=== PATIENT | female | born 1930 | race Hispanic/Latino ===

== ENCOUNTER 2017-02-25 15:37 | Inpatient (IN) | payer MEDICARE ==
--- NOTE | 2017-02-25 15:52 | ED PDOC ---
Arrival/HPI - General Time Seen by Provider: 02/25/17 15:42 Historian: Patient - History of Present Illness Narrative History of Present Illness (Text): 02/25/17 15:46 86 y/o female, pmh including chronic anemia due to chronic kidney disease/htn/ hyperlipidemia/inferior wall CT/renal insufficiency/aortic stenosis/CHF, nkda, here with the daughter, c/o shortness of breath and leg swelling x 3 days. Pt. has chronic congestive heart failure which she has been having worsening of the leg swelling with left greater than that right, associated with shortness of breath upon exertion from walking bed room in kitchen with her cane, mild coughing, more worsened for the past 2-3 days which eventually causing her difficulty to move around in the house, no abdominal pain, no stool discoloration, no fever or chills, no night sweat, no dizziness, no rash, no numbness or tingling, no palpitation, no other medical or psychological complaints. Past Medical History - Provider Review Nursing Documentation Reviewed: Yes - Infectious Disease Hx of Infectious Diseases: None - Cardiac Hx Cardiac Disorders: Yes Hx Hypertension: Yes - Pulmonary Hx Respiratory Disorders: No - Neurological Hx Neurological Disorder: No - HEENT Hx HEENT Disorder: No - Renal Hx Renal Disorder: No - Endocrine/Metabolic Hx Endocrine Disorders: No - Hematological/Oncological Hx Blood Disorders: No - Integumentary Hx Dermatological Disorder: No - Musculoskeletal/Rheumatological Hx Musculoskeletal Disorders: No Hx Falls: No - Gastrointestinal Hx Gastrointestinal Disorders: No - Genitourinary/Gynecological Hx Genitourinary Disorders: No - Psychiatric Hx Psychophysiologic Disorder: Yes Hx Anxiety: Yes Hx Substance Use: No - Surgical History Hx Coronary Stent: Yes (x6/1st in 2011/last 2014) - Anesthesia Hx Anesthesia: Yes Hx Anesthesia Reactions: No Hx Malignant Hyperthermia: No Family/Social History - Physician Review Nursing Documentation Reviewed: Yes Family/Social History: Unknown Family HX Smoking Status: Never Smoked Hx Alcohol Use: No Hx Substance Use: No Allergies/Home Meds Allergies/Adverse Reactions: Allergies No Known Allergies Allergy (Verified 07/02/15 14:44) Home Medications: Home Meds Medication Instructions Recorded Confirmed Aspirin 325 mg PO DAILY 06/17/15 02/25/17 Atorvastatin [Lipitor] 10 mg PO DAILY 06/17/15 02/25/17 Carvedilol [Coreg] 12.5 mg PO BID 06/17/15 02/25/17 Furosemide [Lasix] 40 mg PO BID 06/17/15 02/25/17 Isosorbide Mononitrate ER [Imdur 30 mg PO DAILY 07/02/15 02/25/17 ER] Alprazolam [Xanax] 0.25 mg PO DAILY 02/25/17 02/25/17 hydrALAZINE [Apresoline] 25 mg PO TID 02/25/17 02/25/17 Review of Systems - Review of Systems Constitutional: Fatigue. absent: Fevers Eyes: absent: Vision Changes ENT: absent: Hearing Changes Respiratory: SOB. absent: Cough Cardiovascular: Edema. absent: Chest Pain Gastrointestinal: absent: Abdominal Pain, Nausea, Vomiting Genitourinary Female: absent: Dysuria Musculoskeletal: absent: Arthralgias, Back Pain Skin: absent: Rash, Pruritis, Skin Lesions Neurological: absent: Headache, Dizziness Psychiatric: absent: Anxiety, Depression Physical Exam Vital Signs Reviewed: Yes Vital Signs Temp Pulse Resp BP Pulse Ox 02/25/17 17:48 128/85 02/25/17 16:42 87 18 115/64 98 02/25/17 16:06 98.0 F 02/25/17 15:38 99.7 F H 96 H 19 110/62 100 Temperature: Afebrile Blood Pressure: Normal Pulse: Regular Respiratory Rate: Normal Appearance: Positive for: Well-Appearing, Non-Toxic Pain Distress: None Mental Status: Positive for: Alert and Oriented X 3 - Systems Exam Head: Present: Atraumatic, Normocephalic Pupils: Present: PERRL Extroacular Muscles: Present: EOMI Conjunctiva: Present: Normal Mouth: Present: Moist Mucous Membranes Nose (External): Present: Atraumatic. No: Abrasion, Lesions Neck: Present: Normal Range of Motion, Trachea Midline. No: MIDLINE TENDERNESS Respiratory/Chest: Present: Clear to Auscultation, Good Air Exchange. No: Respiratory Distress, Accessory Muscle Use, Wheezes, Decreased Breath Sounds, Rales, Retracting, Rhonchi, Tachypneic, Tender to Palpation Cardiovascular: Present: Regular Rate and Rhythm, Normal S1, S2, Other (3+ pedal edema bilaterally with no cellulitis or streaking, no ulcers. ). No: Murmurs Abdomen: Present: Normal Bowel Sounds. 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 Guaiac negative). No: Occult Blood, Rectal Tenderness, Gross Blood, Melena, Fissures, Nodule/Mass/Lesions Back: Present: Normal Inspection Upper Extremity: Present: Normal Inspection. No: Cyanosis, Edema Lower Extremity: Present: Normal Inspection. No: Edema Neurological: Present: GCS=15, Speech Normal, Motor Func Grossly Intact, Memory Normal Skin: Present: Warm, Dry, Normal Color. No: Rashes Psychiatric: Present: Alert, Oriented x 3, Normal Insight, Normal Concentration Medical Decision Making ED Course and Treatment: 02/25/17 15:58 -labs/ua -ekg -cxr -nasal cannula oxygen/aspirin 325mg po -athletic monitor -Observe and reassess 02/25/17 17:24 -Guaiac negative -EKG: NSR @ 89 BPM, non-specific ST changes noted on the I and aVL, no obvious ST elevation or depression, no T wave inversion, compared with previous ekg. -Chest xray: mild central pulmonary vascular congestion with small bilateral effusions. Rule out CHF or fluid overload -Bilateral lower extremity venous Doppler: as per preliminary report, no acute DVT -Labs show no acute findings except Hgb 8.1 (Guaiac negative, CKD and anemia) from 10.6, Bun 35 from 79, Creatine 1.4 from 1.9 -BNP show 04735 from 6740 (stated that she feels well when she remains still and not moving, she's not in respiratory distress at this time) -Cardiac troponin is 0.03 (which is above the normal range as it needs to be trend). -She will need tele admission with after school program director evaluation as her CHF is worsening with unable to walk across the room. -Her shortness of breath is likely contributing from the worsening CHF and anemia. She will be admitted for the CHF and symptomatic anemia. -Dr. Quinones [email or web address]. 02/25/17 17:39 -I spoke to Dr. Quinones which she reviewed all the labs/radiology studies, agreed to admit the patient but request lasix and blood transfusion since she is symptomatic anemia. Dr. Quinones will put in her own consults. -Due to the patient's condition, will start with 1 unit of blood and 20mg of lasix as her blood pressure is not relatively high. -Discussed with Dr. Pitts and he agreed on the admission. - Lab Interpretations Lab Results: 02/25/17 16:30 02/25/17 16:30 Lab Results 02/25/17 17:43: Blood Type A NEGATIVE, Antibody Screen Negative, Crossmatch See Detail, BBK History Checked No verified bt 02/25/17 16:30: Sodium 140, Potassium 4.0, Chloride 99, Carbon Dioxide 31, Anion Gap 14, BUN 35 H, Creatinine 1.4 H, Est GFR ( Amer) 43, Est GFR ( Non-Af Amer) 36, Random Glucose 102, Calcium 9.0, Magnesium 1.9, Total Bilirubin 0.6, AST 31, ALT 29, Alkaline Phosphatase 75, Lactate Dehydrogenase 714 H, Total Creatine Kinase 54, Troponin I 0.03 D, NT-Pro-B Natriuret Pep 92963 H, Total Protein 7.2, Albumin 3.8, Globulin 3.4, Albumin/Globulin Ratio 1.1 02/25/17 16:30: WBC 5.0, RBC 3.76, Hgb 8.1 L, Hct 28.7 L, MCV 76.3 L, MCH 21.5 L , MCHC 28.2 L, RDW 19.2 H, Plt Count 233, MPV 9.7, Gran % 65.5, Lymph % (Auto) 21.7 L, [place] % (Auto) 10.4 H, Eos % (Auto) 2.0, Baso % (Auto) 0.4, Gran # 3.29, Lymph # 1.1 L, [place] # 0.5, Eos # 0.1, Baso # 0.02 - RAD Interpretation Radiology Orders: 02/25/17 15:53 CHEST PORTABLE [RAD] Stat 02/25/17 15:55 DUPLEX LOWER EXTRM VEIN BILAT [US] Stat Chest xray: HISTORY: shortness of breath COMPARISON: Comparison chest 06/20/2015 FINDINGS: LUNGS: Current study reveals what is felt to represent mild central pulmonary vascular congestion with small bilateral effusions. . Rule out CHF or fluid overload. PLEURA: No significant pleural effusion identified, no pneumothorax apparent. CARDIOVASCULAR: . Heart appears enlarged. OSSEOUS STRUCTURES: No significant abnormalities. VISUALIZED UPPER ABDOMEN: Normal. OTHER FINDINGS: None. IMPRESSION: Current study reveals what is felt to represent mild central pulmonary vascular congestion with small bilateral effusions. . Rule out CHF or fluid overload. Bilateral lower extremity venuous doppler: as per preliminary report, no acute DVT Sheep Sorter: Radiologist - EKG Interpretation EKG Interpretation (Text): 02/25/17 16:01 -EKG: NSR @ 89 BPM, non-specific ST changes noted on the I and aVL, no obvious ST elevation or depression, no T wave inversion, compared with previous ekg. Interpreted by ED Physician: Yes Type: 12 lead EKG Comparison: Com.w/previous EKG - Medication Orders Current Medication Orders: Alprazolam (Xanax) 0.25 mg PO HS PRN; Protocol PRN Reason: Anxiety Stop: 03/04/17 22:01 Aspirin (Aspirin Chewable) 81 mg PO DAILY [facility] Last Admin: 02/26/17 09:06 Dose: 81 mg Atorvastatin Calcium (Lipitor) 10 mg PO DIN [facility] Last Admin: 02/26/17 17:31 Dose: 10 mg Carvedilol (Coreg) 12.5 mg PO BID [facility] Last Admin: 02/26/17 17:30 Dose: 12.5 mg MAR Pulse and Blood Pressure Document 02/26/17 17:30 (Rec: 02/26/17 17:30 [id number] Pulse Pulse Rate (60-90) 76 Blood Pressure Blood Pressure (100/60-150/90) 126/68 Furosemide (Lasix) 40 mg IVP BID [facility] Last Admin: 02/26/17 17:18 Dose: 40 mg MAR Blood Pressure Document 02/26/17 17:18 MF (Rec: 02/26/17 17:29 [id number][facility] Blood Pressure Blood Pressure (100/60-150/90) 177/98 IVP Administration Document 02/26/17 17:18 MF (Rec: 02/26/17 17:29 [id number]) Charges for Administration # of IVP Administrations 1 Hydralazine HCl (Apresoline) 25 mg PO TID [facility] Last Admin: 02/26/17 17:29 Dose: 25 mg MAR Pulse and Blood Pressure Document 02/26/17 17:29 MF (Rec: 02/26/17 17:30 [id number]) Pulse Pulse Rate (60-90) 76 Blood Pressure Blood Pressure (100/60-150/90) 126/68 Isosorbide Mononitrate (Imdur Er) 30 mg PO DAILY [facility] Last Admin: 02/26/17 09:06 Dose: 30 mg Discontinued Medications Aspirin (Ecotrin) 325 mg PO STAT STA Stop: 02/25/17 15:54 Last Admin: 02/25/17 16:08 Dose: 325 mg Furosemide (Lasix) 20 mg IVP STAT STA Stop: 02/25/17 17:35 Last Admin: 02/25/17 17:48 Dose: 20 mg MAR Blood Pressure Document 02/25/17 17:48 [place] (Rec: 02/25/17 17:51 [id number]) Blood Pressure Blood Pressure (100/60-150/90) 128/85 IVP Administration Document 02/25/17 17:48 LA (Rec: 02/25/17 17:51 [id number]) Charges for Administration # of IVP Administrations 1 Furosemide (Lasix) 40 mg IVP Q12 ALIVIA Furosemide (Lasix) 20 mg IVP ONCE ONE Stop: 02/25/17 19:53 Last Admin: 02/25/17 20:17 Dose: 20 mg MAR Blood Pressure Document 02/25/17 20:17 AP (Rec: 02/25/17 20:18 AP [id number]) Blood Pressure Blood Pressure (100/60-150/90) 132/75 IVP Administration Document 02/25/17 20:17 AP (Rec: 02/25/17 20:18 AP [id number]) Charges for Administration # of IVP Administrations 1 - PA / PLANER FEEDER / Resident Statement MD/DO has reviewed & agrees with the documentation as recorded. Disposition/Present on Arrival - Present on Arrival Any Indicators Present on Arrival: No History of DVT/PE: No History of Uncontrolled Diabetes: No Urinary Catheter: No History of Decub. Ulcer: No History Surgical Site Infection Following: None - Disposition Have Diagnosis and Disposition been Completed?: Yes Diagnosis: Congestive heart failure (CHF), Dehydration, Symptomatic anemia Disposition: HOSPITALIZED Disposition Time: 17:27 Patient Plan: Admission, Telemetry Patient Problems: Current Active Problems Problem Status Onset Congestive heart failure (CHF) Acute Dehydration Acute Symptomatic anemia Acute Condition: GUARDED
[2017-02-25] MEDS ORDERED: Aspirin 325 mg EC Tablets PO STA (15:53)
--- NOTE | 2017-02-25 16:33 | RAD ---
HISTORY: shortness of breath COMPARISON: Comparison chest 06/20/2015 FINDINGS: LUNGS: Current study reveals what is felt to represent mild central pulmonary vascular congestion with small bilateral effusions. . Rule out CHF or fluid overload. PLEURA: No significant pleural effusion identified, no pneumothorax apparent. CARDIOVASCULAR: . Heart appears enlarged. OSSEOUS STRUCTURES: No significant abnormalities. VISUALIZED UPPER ABDOMEN: Normal. OTHER FINDINGS: None. IMPRESSION: Current study reveals what is felt to represent mild central pulmonary vascular congestion with small bilateral effusions. . Rule out CHF or fluid overload.
[2017-02-25 16:53] LABS: BASO # 0.02 K/mm3 (0.0-2.0); BASO % 0.4 % (0.0-3.0); EOS # 0.1 (0.0-0.7); GRAN # 3.29 (1.4-6.5); GRAN % 65.5 % (50.0-68.0); HEMATOCRIT 28.7 % (36.0-48.0); LYMPH # 1.1 (1.2-3.4); LYMPH % 21.7 % (22.0-35.0); MEAN CELL VOLUME 76.3 fl (80.0-105.0); MEAN CORPUSCULAR HEMOGLOBIN 21.5 pg (25.0-35.0); MEAN CORPUSCULAR HGB CONC 28.2 g/dl (31.0-37.0); MEAN PLATELET VOLUME 9.7 fl (7.0-11.0); MONO # 0.5 (0.1-0.6); MONO % 10.4 % (1.0-6.0); RED CELL DISTRIBUTION WIDTH 19.2 % (11.5-14.5)
[2017-02-25 17:04] LABS: ALB/GLOB RATIO 1.1 (1.1-1.8); BILIRUBIN,TOTAL 0.6 mg/dL (0.2-1.3); MAGNESIUM 1.9 mg/dL (1.7-2.2); TOTAL PROTEIN 7.2 g/dL (5.8-8.3)
[2017-02-25 17:14] LABS: TROPONIN I 0.03 ng/mL
[2017-02-25 20:20] VITALS: BMI 30.2
[2017-02-25 20:37] LABS: URINE BILIRUBIN NEGATIVE (NEGATIVE); URINE BLOOD NEGATIVE (NEGATIVE); URINE GLUCOSE (UA) NEGATIVE (NEGATIVE); URINE KETONE NEGATIVE (NEGATIVE); URINE LEUKOCYTE ESTERASE SMALL Leu/uL (NEGATIVE); URINE PROTEIN NEGATIVE mg/dL (<30 mg/dL); URINE UROBILINOGEN 0.2 E.U./dL (<1 E.U./dL)
[2017-02-25 20:40] LABS: URINE APPEARANCE CLEAR (CLEAR); URINE COLOR YELLOW (YELLOW)
[2017-02-25 20:52] LABS: URINE EPITHELIAL CELLS 0 - 2 /hpf (0-5); URINE RBC NEGATIVE /hpf (0-2)
[2017-02-25 20:53] LABS: URINE BACTERIA NEG (NEG)
[2017-02-26 05:59] LABS: BASO # 0.03 K/mm3 (0.0-2.0); BASO % 0.5 % (0.0-3.0); EOS # 0.2 (0.0-0.7); EOS % 2.6 % (1.5-5.0); GRAN # 4.01 (1.4-6.5); GRAN % 62.1 % (50.0-68.0); LYMPH # 1.3 (1.2-3.4); LYMPH % 20.2 % (22.0-35.0); MEAN CELL VOLUME 79.1 fl (80.0-105.0); MEAN CORPUSCULAR HEMOGLOBIN 23.3 pg (25.0-35.0); MEAN CORPUSCULAR HGB CONC 29.4 g/dl (31.0-37.0); MONO # 0.9 (0.1-0.6); MONO % 14.6 % (1.0-6.0); RED CELL DISTRIBUTION WIDTH 18.7 % (11.5-14.5); WHITE BLOOD COUNT 6.5 10^3/ul (4.5-11.0)
[2017-02-26 09:56] LABS: IRON 152 ug/dL (45-180)
[2017-02-26 12:29] LABS: FOLATE 5.4 ng/mL
--- NOTE | 2017-02-26 13:08 | US ---
HISTORY: Leg pain and swelling. Evaluate for DVT PHYSICIAN(S): Denilson Perez MD. TECHNIQUE: Duplex sonography and color-flow Doppler with graded compression were used to evaluate the deep venous systems of both lower extremities. FINDINGS: The visualized deep venous systems of both lower extremities are sonographically normal and compressible. Normal wave forms and augmentation are seen. There is no sonographic evidence for deep venous thrombosis in the visualized segments of both lower extremities. IMPRESSION: No sonographic evidence for deep venous thrombosis in the visualized segments of both lower extremities.
--- NOTE | 2017-02-26 14:04 | CARD ---
APPROVED REPORT EKG Measurement Heart [id number] MD [id number] <Conclusion> Normal sinus rhythm Left ventricular hypertrophy with repolarization abnormality Inferior infarct, age undetermined Abnormal ECG
--- NOTE | 2017-02-26 22:26 | HP ---
HISTORY OF PRESENT ILLNESS: This 86-year-old female was examined at her bedside, and her case was reviewed in detail with herself and her registered nurse, Mi Carty. The patient presented to the [facility] ER with the help of her family last evening. She was complaining of shortness of breath for the past 3 days associated with bilateral leg swelling. The patient's past medical history is extensive and includes chronic systolic congestive heart failure. She also has a history of [id number] aortic stenosis, severe mitral regurgitation and history of right heart failure, as well as dilated left atrium. This is all from her 2-D echocardiogram dated 06/2015. She follows with Dr. Jane, her resilient tile installer, and has been seen by Dr. Oziel Treadwell from the [facility] on previous admissions. The patient because of her shortness of breath and pedal edema was having difficulty ambulating around her home and when she presented to the ER, was noted to be with advanced anemia and clinical congestive heart failure. She has been admitted for diuresis and blood cell transfusion. The patient has a history of coronary artery stents x6, the last placed in 2014. MEDICATIONS: She, as an outpatient, takes Ecotrin, Lipitor, Coreg, Lasix, Imdur, Xanax p.r.n. anxiety, and hydralazine. 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 FAMILY HISTORY: Not available. ALLERGIES: SHE DENIES ANY ALLERGIES TO MEDICATIONS. REVIEW OF SYSTEMS: CONSTITUTIONAL: She denied fever or chills. HEENT: Head: No knowledge of old stroke. Eyes: No change in visual acuity. Ears: No hearing loss. Throat: No swallowing difficulty. NECK: No stiffness. CARDIOVASCULAR: History of atherosclerotic heart disease, cardiomyopathy, aortic stenosis, mitral regurgitation, right heart failure, acute on chronic systolic congestive heart failure, chronic hypertension PULMONARY: Pulmonary hypertension. GI: Denied hematemesis, melena. 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 ENDOCRINOLOGICAL: Hyperlipidemia and anemia of chronic disease. VASCULAR: No claudication. PSYCHOLOGICAL: Anxiety. NEUROLOGICAL: No knowledge of stroke. PHYSICAL EXAMINATION: GENERAL: At present, the patient is in atrial fibrillation on the panel monitor. VITAL SIGNS: Temperature 97.8, respirations 19, pulse 72, blood pressure 140/75, pulse oximetry 94% room air. HEENT: Head: Normocephalic, atraumatic. Eyes: No icterus. Ears: Clear. Throat: Noninjected. NECK: Supple. HEART: Irregular S1, S2. LUNGS: With basilar rales. ABDOMEN: Soft. EXTREMITIES: 2+ pitting edema. SKIN: Without rash. VASCULAR: Legs warm to touch. PSYCHOLOGICAL: Alert and anxious. NEURO: Grossly intact. LABORATORY DATA: Admission CBC, white count 5000, hemoglobin 8.1, hematocrit 28.7, platelets 233,000. Post transfusion, white count 6500, hemoglobin 10.6, hematocrit 36.0, platelets 208,000. PT/INR 1.01, PTT 31.0. Sodium 140, K 4.0, chloride 99, bicarb 31, BUN 35, creatinine 1.4. Estimated GFR 36 mL/minute. Magnesium level normal 1.9. Iron level 152, TIBC 495, percent saturation 31% consistent with anemia of chronic disease. All liver function testing was normal including bilirubin 0.6, AST 31, ALT 29 and alkaline phosphatase 75. BNP elevated 18,900. CPK normal at 54. Troponin 0.03. Urinalysis showed no bacteria. Chest x-ray was reviewed, it shows pulmonary vascular congestion. EKG reportedly showed normal sinus rhythm with nonspecific ST-T wave changes. 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 PLAN: At present is to maintain the patient on the cardiac sierra. She will continue on hydralazine 25 mg p.o. t.i.d.; Imdur 30 mg p.o. daily; Lasix 40 mg IV b.i.d.; Lipitor 10 mg p.o. at dinner time; Ecotrin 81 mg p.o. daily; Coreg 12.5 mg p.o. b.i.d.; Xanax 0.25 mg p.o. at bedtime p.r.n. anxiety. I will obtain a consultation with Dr. Oziel Treadwell from Cardiology given the multiple cardiac issues at hand including hypertension, atherosclerotic heart disease with stents, acute on chronic systolic congestive heart failure, right heart failure, history of severe aortic stenosis, severe mitral regurgitation, pulmonary hypertension, right heart failure, and now paroxysmal atrial fibrillation. Given the patient's advanced age, anemia, and multiple comorbidities, I do not feel she is a good candidate for anticoagulation, but we will discuss this further with Cardiology. At present, her blood pressure and pulse rate are controlled and we will continue with her beta-brittanie as well as hydralazine and IV Lasix. As discussed with the patient and her family in the past, she will need to discuss the timing of a gastrointestinal workup with her PMD if this has not yet been completed when she is clinically stable given her anemia. The patient will be maintained on the cardiac unit. She will have a repeat basic metabolic panel and hemoglobin/hematocrit in the a.m. Stool guaiac in the emergency room by the emergency room physician was reportedly negative for occult blood, and she continues on a heart-healthy diet, soft, bland with fluid restriction. Physical therapy has also been ordered for ambulation safety. Overall prognosis remains poor. Greater than seventyfive minutes was spent in the care, counseling, coordination , discussion and review of x-rays, labs, old echocardiography and old medical records for this patient today. This case was reviewed in detail with herself, nursing, Cardiology, emergency room physicians, and all questions were answered. Cally Quinones MD MTDD
[2017-02-27 06:28] VITALS: O2SAT 96
[2017-02-27 06:49] LABS: HEMATOCRIT 35.1 % (36.0-48.0)
[2017-02-27 07:30] LABS: CALCIUM 9.2 mg/dL (8.4-10.5); POTASSIUM 3.7 mmol/L (3.6-5.0)
--- NOTE | 2017-02-27 19:59 | CON ---
DATE: 02/27/2017 INDICATION: Shortness of breath and CHF. HISTORY OF PRESENT ILLNESS: This is an 86-year-old woman known to me from an admission about a year and half ago, who came in because of several days increasing shortness of breath, inability to perform ordinary activities because of fatigue and increasing pedal edema. She was admitted through the Emergency Room where she was found to be anemic and with evidence of congestive heart failure. She received a blood transfusion, IV Lasix. This morning she feels better, lying in bed on telemetry without shortness of breath, but still with mild to moderate lower extremity edema. There was no chest pain, orthopnea, PND, syncope, presyncope, lightheadedness, dizziness, fever, chills, sputum production, hemoptysis, abdominal pain, nausea, vomiting, diarrhea, constipation, or melena. PAST MEDICAL HISTORY: Her past medical history is complex, she suffered an inferior wall myocardial infarction in 06/2015, was hospitalized to [facility] that was my first encounter with her. I have not seen her since. She follows with her regular Assistant Statistician Dr. Jane. She has a history of remote coronary bypass surgery, remote myocardial infarction, and remote coronary stents. An echocardiogram during last admission demonstrated moderately severe LV dysfunction, moderate to severe aortic stenosis, mitral regurgitation, and pulmonary hypertension with mild to moderate tricuspid regurgitation. She has a history of hypertension, hyperlipidemia, anemia, and chronic kidney disease. There is no history of stroke, TIA, diabetes, or gout. MEDICATIONS: Medications at the time of admission include aspirin, Lipitor, Coreg, Lasix, Imdur, Xanax, and hydralazine. ALLERGIES: THERE ARE NO KNOWN MEDICATION ALLERGIES. FAMILY HISTORY: Noncontributory. SOCIAL HISTORY: She lives at home with her family. She is ambulatory within the house. She does not smoke. She does not drink alcohol. REVIEW OF SYSTEMS: A 10-point review of systems limited due to language, but otherwise unremarkable. PHYSICAL EXAMINATION GENERAL: She is a well-developed elderly woman lying in bed on telemetry in no acute distress. VITAL SIGNS: She is in sinus rhythm at 83 beats per minute. She is afebrile. Blood pressure 115/61, respirations 19, and O2 saturation 94 to 96% on nasal cannula. HEENT: Reveals neck in distention, but no thyromegaly or carotid bruits. Mucous membrane is moist. Conjunctiva pale. NECK: Supple. LUNGS: Lung caicedo scattered rales at the bases. HEART: Revealed normal first and second heart sounds. There is a 2/6 systolic ejection murmur in aortic space along the left sternal border and at the apex. There is a systolic murmur, which is more holosystolic. The PMI is displaced laterally. ABDOMEN: Soft. Bowel sounds present. No mass, organomegaly, tenderness, rebound, guarding, CVA tenderness or palpable abdominal aortic aneurysm. EXTREMITIES: Revealed mild to moderate edema to the shins. NEUROLOGIC: Awake, alert, and oriented. SKIN: Warm and dry. No rash or cellulitis. PSYCHIATRIC: Normal as to mood and affect. LABORATORY DATA AND IMAGING: EKG demonstrated regular sinus rhythm, poor R-wave progression, inferior wall myocardial infarction, ST-T wave changes consistent with ischemia, LVH, intraventricular conduction delay, ischemic changes are more obvious as compared with a prior EKG. Chest x-ray reveals vascular congestion, small bilateral pleural effusions rule out CHF or volume overload. Extremity ultrasound reveals no evidence of DVT. White count normal. Hemoglobin initially 8.1 repeat this morning 10.0, hematocrit 28.7, repeat this morning 35.1, platelet count was normal. Electrolytes unremarkable. BUN 35 and creatinine 1.4, repeat 1.3. Calcium and magnesium levels normal. Iron study is noted. Liver function tests are unremarkable. CK 54, troponin 0.03. BNP 32567. B12 and folate levels normal. Urinalysis unremarkable. IMPRESSION: Di Styles is an 86-year-old woman with coronary artery disease, remote coronary bypass surgery, remote coronary interventions, inferior wall myocardial infarction in 06/2015, with moderately severe left ventricular dysfunction and valvular pathology as described in the 06/2015 echo report, a history of hypertension, hyperlipidemia, and anemia worse recently with a history of chronic kidney disease, who was admitted with anemia, congestive heart failure, and symptoms consisting of shortness of breath, inability to perform ordinary activities and edema. PLAN: At this point, she is on telemetry, she has been given a unit of blood, she is getting IV Lasix, her urine output is not accurately reported, but the nurses told me that there was good urine output during the night. Her breathing has improved. She still has edema. I will review old records. I will discuss this case with Dr. Quinones, who will monitor I's and O's, check stool for occult blood, monitor daily labs. I will repeat her echocardiogram to update her valve pathology and LV function. She is getting hydralazine, aspirin, Coreg, Imdur, IV Lasix, Lipitor, and Xanax at bedtime p.r.n. I have ordered an echocardiogram. I will repeat her EKG this morning and repeat the troponin level this morning. I will follow along with you. I will make additional recommendations based on the clinical course. Given her advanced age, a conservative course of cardiac care is anticipated. Oziel Treadwell MD MTDD
[2017-02-28 06:29] LABS: BASO # 0.03 K/mm3 (0.0-2.0); BASO % 0.4 % (0.0-3.0); EOS # 0.4 (0.0-0.7); EOS % 5.1 % (1.5-5.0); GRAN # 4.83 (1.4-6.5); HEMATOCRIT 35.3 % (36.0-48.0); LYMPH # 1.1 (1.2-3.4); LYMPH % 15.2 % (22.0-35.0); MEAN CELL VOLUME 80.2 fl (80.0-105.0); MEAN CORPUSCULAR HEMOGLOBIN 22.7 pg (25.0-35.0); MEAN CORPUSCULAR HGB CONC 28.3 g/dl (31.0-37.0); MEAN PLATELET VOLUME 9.4 fl (7.0-11.0); MONO # 0.8 (0.1-0.6); MONO % 11.3 % (1.0-6.0); RED CELL DISTRIBUTION WIDTH 19.7 % (11.5-14.5); WHITE BLOOD COUNT 7.1 10^3/ul (4.5-11.0)
[2017-02-28 06:57] LABS: CALCIUM 9.3 mg/dL (8.4-10.5); POTASSIUM 3.5 mmol/L (3.6-5.0)
--- NOTE | 2017-02-28 07:42 | PN ---
DATE: 02/27/2017 SUBJECTIVE: This 86-year-old female who was examined at the bedside in the presence of her son and her case was reviewed in detail with herself, her nurse Marium and charge nurse, Maile. This case was also reviewed with case management and Cardiology. The patient was admitted with decompensated acute on chronic systolic congestive heart failure in the setting of multiple comorbidities including cardiomyopathy, aortic stenosis, mitral regurgitation, chronic right heart failure, history of pulmonary hypertension, and anemia of chronic disease. The patient at the present time remains chest pain free, is diuresing on IV Lasix and p.o. fluid restriction, was seen by Dr. Oziel Treadwell from Cardiology earlier this morning who was ordered a 2D echocardiogram that is pending at the present time. The patient is in a normal sinus rhythm on the classroom monitor. She denies any fever, chills, chest pain or shortness of breath and there have been no reports of hematemesis or melena. The patient tolerated 2 units of packed red blood cell transfusion. PHYSICAL EXAMINATION: VITAL SIGNS: Normal sinus rhythm on classroom monitor. Temperature 98.4, respirations 19, pulse 83, blood pressure 115/61, and pulse ox 96% on room air. Initial admission body weight 155, presently 149. HEENT: Head; normocephalic and atraumatic. Eyes; no icterus. Ears clear. Throat; noninjected. NECK: Supple. HEART: Regular S1 and S2. LUNGS: Decreased breath sounds both bases. ABDOMEN: Obese and nontender. No palpable organomegaly. EXTREMITIES: 1+ pitting edema. SKIN: Without rash. NEUROLOGICAL: Grossly intact. PSYCHOLOGICAL: Alert, but anxious. VASCULAR: Legs warm to touch. LABORATORY DATA: White count 6500, hemoglobin 10.0, hematocrit 35.1, and platelets 208,000. Sodium 144, K 3.7, chloride 102, bicarb 32, BUN 35, and creatinine 1.3. Estimated GFR 39 mL per minute. Iron 152, percent saturation 31, B12 is 448, and folic acid 5.4. CPK normal at 54. Urinalysis, no bacteria. Chest x-ray was reviewed. Pulmonary vascular congestion was evident with small bilateral pleural effusions. Heart was enlarged, no evidence of pneumonia or pneumothorax. Bilateral lower extremity ultrasound was reviewed. There was no sonographic evidence for deep venous thrombosis in the visualized segments of both lower extremities. IMPRESSION: This is an 86-year-old female with acute on chronic systolic congestive heart failure with multiple comorbidities of chronic hypertension, stable atherosclerotic heart disease, status post six coronary artery stents and history of severe aortic stenosis, severe mitral regurgitation, pulmonary hypertension, right heart failure as well as chronic hypertension, hyperlipidemia, anxiety neurosis, chronic renal failure stage III, and anemia of chronic disease. PLAN: As discussed with the patient, nursing, Cardiology, and son at bedside is to continue heart-healthy diet with 1000 mL p.o. fluid restriction and the patient has been ordered to have a physical therapy evaluation for ambulation safety. She remains on Is and Os, heart healthy bland diet, and 2D echocardiogram has been ordered. She will continue on Lipitor 10 mg p.o. at dinnertime, Xanax 0.25 mg p.o. at bedtime p.r.n. anxiety, Lasix 40 mg IV q.12 hours, Imdur 30 mg p.o. daily, Coreg 12.5 mg p.o. b.i.d., Ecotrin 81 mg p.o. daily, and hydralazine 25 mg p.o. t.i.d. She is ordered to have a basic metabolic panel and CBC repeated in the morning. I have discussed all of the above in detail with her son at the bedside. I have instructed that once she is cleared by Cardiology for discharge, she will need to follow up with her child life assistant, Dr. Jane who will need to more closely monitor her clinical progress and consider her for medication adjustment as an outpatient and to discuss the timing if desired for endoscopy and colonoscopy given her advanced anemia and the fact that this has not been completed according to the son in the recent past. All of the above was discussed in detail with the patient and her son at the bedside. Greater than 35 minutes was spent in the care management, coordination of care, review of x-rays, labs, old medical records, old echocardiography, and ordering of medication and testing for this patient today. All questions were answered. Cally Quinones MD UNITED HEALTH SERVICESBlanca
--- NOTE | 2017-02-28 08:39 | CARD ---
APPROVED REPORT EXAM: Two-dimensional and M-mode echocardiogram with Doppler and color Doppler. INDICATION Dyspnea VALVULAR HEART DISEASE 2D DIMENSIONS Left Atrium (2D)5.7 (1.6-4.0cm)IVSd1.6 (0.7-1.1cm) LVDd4.9 (3.9-5.9cm)LVOT Diameter1.9 (1.8-2.4cm) PWd1.0 (0.7-1.1cm)LVDs4.4 (2.5-4.0cm) FS (%) 9.6 %LVEF (%)20.9 (>50%) M-Mode DIMENSIONS Aortic Root2.40 (2.2-3.7cm)Aortic Cusp Exc.0.60 (1.5-2.0cm) Aortic Valve AoV Peak Ifjoiwby985.0cm/sAoV VTI82.0cmAO Peak GR.65mmHg LVOT Peak Kxskgfga22.4cm/sLVOT VTI17.10cmAO Mean GR.33mmHg JUDE (VMAX)0.89hw5LGB (VTI)0.59cm2 Mitral Valve E/A ratio0.0 TDI E/Lateral E'0.0E/Medial E'0.0 Tricuspid Valve TR Peak [id number]/sRAP [id number] Peak Gr.89mmHg [id number] LEFT VENTRICLE The left ventricle is normal size. There is moderate basal septal hypertrophy wth no evidence of LV outflow tract gradient. The systolic function is mildly impaired. There is severe hypokinesis in the inferoseptal wall. RIGHT VENTRICLE The right ventricle is normal size. The right ventricular systolic function is normal. A thick and calcified moderator band is seen in the right ventricle. ATRIA The left atrium is severely dilated. The right atrium is severely dilated. The interatrial septum is intact with no evidence for an atrial septal defect. AORTIC VALVE The aortic valve is severely calcified. There is trace to mild aortic regurgitation. There is moderate valvular aortic stenosis. MITRAL VALVE The mitral valve leaflets are thickened and calcified. Mitral regurgitation is severe. TRICUSPID VALVE The tricuspid valve leaflets are thickened , but open well. There is severe tricuspid regurgitation. There is severe pulmonary hypertension. PULMONIC VALVE The pulmonary valve is normal in structure. There is mild pulmonic valvular regurgitation. GREAT VESSELS The aortic root is normal in size. Dilated IVC with poor inspiration collapse is consistent with elevated right atrial pressure. PERICARDIAL EFFUSION There is no pleural effusion. There is no pericardial effusion. <Conclusion> Marked biatrial enlargement. Moderate basal septal hypertrophy. Mildly reduced LV systolilc function with marked inferoseptal hypokinesis. Severe MR and TR. Moderate . Severe pulmonary HTN.
[2017-02-28] MEDS ORDERED: Potassium Chloride 20 mEq ER Tab PO ONE (11:59)
--- NOTE | 2017-02-28 13:09 | PN ---
DATE: 02/28/2017 SUBJECTIVE: The patient was seen lying in bed on telemetry. She is currently comfortable. Her peripheral edema is improved. She is seen in the presence of her family. CURRENT MEDICATIONS: Include hydralazine 25 mg t.i.d., aspirin was daily, carvedilol 12.5 mg b.i.d., Imdur 30 mg daily, Lasix 40 mg b.i.d., Lipitor 10 mg daily, and Xanax p.r.n. OBJECTIVE: GENERAL: She is a very elderly woman who appears comfortable at rest. VITAL SIGNS: Blood pressure is 114/66 with pulse of 72 and sinus, respirations are 14. She is afebrile. HEENT: Diminished and delayed carotid upstrokes. CHEST: Bilateral scattered rhonchi heard. HEART: PMI displaced laterally. There is a mid-to-late peaking systolic murmur present at the base as well as holosystolic murmur at the lower sternal border and apex. ABDOMEN: Soft and nontender with normoactive bowel sounds. EXTREMITIES: No edema. DIAGNOSTIC DATA: Potassium 3.5, BUN and creatinine 35 and 1.2. Hemoglobin and hematocrit 10.0 and 35.3 with platelet count of 182,000 and white count is 7.1. Echocardiogram was reviewed and revealed evidence of mildly reduced LV systolic function with anteroseptal hypokinesis, moderate basal septal hypertrophy is present. There is marked biatrial enlargement as well as severe mitral and tricuspid regurgitation as well as moderate aortic stenosis. IMPRESSION: 1. Decompensated congestive heart failure, acute on chronic, clinically improved, likely predominantly diastolic in nature. 2. Moderate aortic stenosis. 3. Severe mitral and tricuspid regurgitation. 4. Coronary artery disease status post prior bypass surgery. RECOMMENDATIONS: Her current medications should be continued at this time. Lasix can be switched to oral administration. Sodium and fluid restriction are advised. From a cardiac standpoint, she appears stable for discharge home at this time and she can follow up with her primary nurse practitioner per diem. Her family was instructed to notify the nurse practitioner per diem if she does have significant weight gain or increasing peripheral edema at home, at which time outpatient diuretic changes can possibly be made to avoid future hospitalizations. Emigdio Islas MD
--- NOTE | 2017-02-28 20:55 | PN ---
DATE: 02/28/2017 SUBJECTIVE: This 86-year-old female was examined at the bedside in the presence of her daughter and this case was reviewed in detail with her nurse, case management and nurse practitioner. The patient remains in a normal sinus rhythm. She is diuresing on IV Lasix. She is being followed by P[employer] Boner, Dr. Treadwell and a 2-D echocardiogram was ordered. The patient presently denies chest pain, fever, chills, shortness of breath or chest pain and has had no evidence of hematemesis or melena but was admitted with anemia of chronic disease requiring blood cell transfusion. This was accomplished without incident. The patient at present declines any consideration of gastrointestinal workup including endoscopy or colonoscopy. Daughter was at the bedside and concurs with this as well. PHYSICAL EXAMINATION VITAL SIGNS: Her side stitching machine operator shows a normal sinus rhythm, temperature 98.2, respirations 20, pulse 70, blood pressure 114/67. Pulse ox 96%. Urine output 1600 ml. HEENT: HEAD: Normocephalic, atraumatic. Eyes: No icterus. Ears: Clear. Throat: Noninjected. NECK: Supple. HEART: Regular S1, S2. No pathological rubs, murmurs or gallops. LUNGS: Decreased breath sounds at the bases. ABDOMEN: Soft. EXTREMITIES: 1+ edema. SKIN: Without rash. NEUROLOGICAL: Intact. PSYCHOLOGICAL: Anxious. VASCULAR: Legs warm to touch. LABORATORY DATA: White count 7100, hemoglobin 10, hematocrit 35.3, platelets 182,000. Sodium 142, K 3.5, chloride 99, bicarb 37, BUN 35, creatinine 1.2, random blood sugar 112, iron level 152, percent saturation 31, troponin 0.05. Vitamin B12 normal 448. Folic acid normal 5.4. BNP elevated 18,900. Urinalysis; no bacteria. IMPRESSION: This is an 86-year-old female with decompensated acute on chronic renal failure with history of aortic stenosis, mitral regurgitation, right heart failure, chronic renal failure stage III, hypokalemia , chronic hypertension, anemia of chronic disease, now with advanced anemia that required blood cell transfusion, anxiety neurosis, degenerative arthritis. PLAN: As discussed with the patient, family at bedside, Cardiology, nursing and case management. The patient will receive physical therapy for ambulation safety. She continues on a heart-healthy soft bland diet. She will continue on Lipitor 10 mg p.o. at dinner time, Lasix 40 mg p.o. b.i.d., Imdur 30 mg p.o. daily, Coreg 12.5 mg p.o. b.i.d., Ecotrin 81 mg p.o. daily, hydralazine 25 mg p.o. t.i.d. and I will order K-Dur 40 mEq p.o. x1 dose today and repeat basic metabolic panel in the a.m. The patient and family continue to decline any consideration of GI workup. They are instructed that once she is cleared by cardiology, she will need to be followed by her Poultry Boner, Dr. Jane regarding management of her acute on chronic systolic congestive heart failure as well as right heart failure and adjustment of medications as an outpatient. The patient and family desire to conservative compassionate course and this will be provided while hospitalized at [facility]. This patient will repeat her chest xrays to evaluate the status of her CHF. Repeat labs will be ordered as well. Greater than thirty five minutes was spent in the care, discussion of care, review of x-rays, labs, medication and ordering of testing for this patient today and discussion with the family at the bedside and discussion with cardiology. All questions were answered. Overall prognosis though poor, remains stable at present. Cally Quinones MD MTDBlanca
[2017-03-01 06:43] VITALS: RESP 18
[2017-03-01 07:06] LABS: CALCIUM 9.1 mg/dL (8.4-10.5); POTASSIUM 4.2 mmol/L (3.6-5.0)
--- NOTE | 2017-03-01 08:01 | CP.PCM.PN ---
Subjective - Date & Time of Evaluation Date of Evaluation: 03/01/17 Time of Evaluation: 07:00 - Subjective Subjective: Stable on 2R. No CP or SOB. V/S noted. PE: Lungs: few rhonchi Cor.: S1S2, Sys. murmur Abd.: soft Ext.: no edema Neuro.: alert I/O= 120/1000 Labs: K+= 4.2, Cr.= 1.3 CXR 02/28: pending Objective - Vital Signs/Intake and Output Vital Signs (last 24 hours): Temp Pulse Resp BP Pulse Ox 97.8 F 72 18 121/69 96 03/01/17 06:00 03/01/17 06:00 03/01/17 06:00 03/01/17 06:00 02/27/17 06:00 Intake and Output: 03/01/17 03/01/17 06:59 18:59 Intake Total 120 Output Total 1000 Balance -880 - Medications Medications: Current Medications Alprazolam (Xanax) 0.25 mg PO HS PRN; Protocol PRN Reason: Anxiety Stop: 03/04/17 22:01 Last Admin: 02/28/17 21:39 Dose: 0.25 mg Aspirin (Aspirin Chewable) 81 mg PO DAILY [facility] Last Admin: 02/28/17 10:09 Dose: 81 mg Atorvastatin Calcium (Lipitor) 10 mg PO DIN [facility] Last Admin: 02/28/17 17:19 Dose: 10 mg Carvedilol (Coreg) 12.5 mg PO BID [facility] Last Admin: 02/28/17 17:19 Dose: 12.5 mg Furosemide (Lasix) 40 mg PO BID [facility] Last Admin: 02/28/17 17:20 Dose: 40 mg Hydralazine HCl (Apresoline) 25 mg PO TID [facility] Last Admin: 02/28/17 17:19 Dose: 25 mg Isosorbide Mononitrate (Imdur Er) 30 mg PO DAILY [facility] Last Admin: 02/28/17 10:09 Dose: 30 mg - Labs Labs: 02/28/17 05:40 03/01/17 06:30 Assessment and Plan - Assessment and Plan (Free Text) Assessment: Dyspnea/Edema IMI 416 CAD/NV/CHF PCI's MR, TR, PH- Severe - Moderate Mild LVD HBP HLD Anemia, s/p transfusion CKD Plan: Continue current cardiac meds. Home soon with cardiology F/U-Lucinda bray.
--- NOTE | 2017-03-01 09:10 | RAD ---
HISTORY: COMPARISON: 02/25/2017. TECHNIQUE: Chest PA and lateral FINDINGS: LINES AND TUBES: None. LUNG AND PLEURA: There is airspace disease in both lower lobes, worse on the left. Again seen is moderate pulmonary venous congestion. There are small pleural effusions. HEART AND MEDIASTINUM: The heart is not enlarged. The hilar and mediastinal contours are within normal limits. SKELETAL STRUCTURES: The bony structures are within normal limits for the patient's age. There is a small calcification lateral to the right humeral head which may represent calcific tendinitis. VISUALIZED UPPER ABDOMEN: Normal. OTHER FINDINGS: None. IMPRESSION: Persistent pulmonary venous congestion and small pleural effusions. Bibasilar airspace disease may represent atelectasis or pneumonia.
[2017-03-01 11:38] VITALS: BP 142/71
[2017-03-01 12:19] VITALS: TEMP 99
[2017-03-01 12:59] VITALS: PULSE 76
--- NOTE | 2017-03-02 05:55 | DS ---
FINAL DIAGNOSES: 1. Acute on chronic systolic congestive heart failure, improved. 2. Chronic hypertension. 3. Hyperlipidemia. 4. Chronic renal failure, stage 3. 5. Anemia of chronic disease. 6. Anxiety. 7. Neurosis. 8. Degenerative arthritis. DISPOSITION: Home with son providing 24-hour supervision for this patient. The patient to follow up with her ladle puller, Dr. Jane within 48 hours. DISCHARGE DIET: 2 g sodium, heart healthy, low cholesterol, 1200 mL p.o. fluid restriction daily. DISCHARGE MEDICATIONS: Lipitor 10 mg p.o. at bedtime, hydralazine 25 mg p.o. t.i.d., Ecotrin 81 mg p.o. daily, Imdur 30 mg p.o. daily, Lasix 40 mg p.o. b.i.d., Coreg 12.5 mg p.o. b.i.d., and Xanax 0.25 mg p.o. at bedtime p.r.n. anxiety. SUMMARY: This 86-year-old female was admitted to the [facility] with acute on chronic decompensated systolic congestive heart failure in the setting of advanced anemia of chronic disease. The patient was transfused, treated with parenteral diuretics, and followed by ladle puller, Dr. Islas, who cleared the patient for discharge. A 2D echocardiogram was performed. This was compared for one from the previous year. It showed impaired systolic ejection fraction, biatrial dilatation, moderate aortic stenosis, severe mitral regurgitation, severe tricuspid regurgitation, and this was reviewed with the patient and her family by both myself and Dr. Islas from Cardiology. Initial chest x-ray and followup chest x-ray showed congestive heart failure; however, the patient was markedly improved at the time of discharge with no complaints of chest pain, shortness of breath, fever, or chills. PHYSICAL EXAMINATION: She was in a normal sinus rhythm on the monitoring manager with a temperature of 97.8, respirations 18, pulse 76, and blood pressure 142/71. Pulse ox 94%. DISCHARGE LABORATORIES: Showed white count 7100, hemoglobin 10, hematocrit 35.3, platelets 182,000. Sodium 144, K 4.2, chloride 98, bicarb 36, BUN 38, creatinine 1.3, random blood sugar 93. Urinalysis showed no bacteria. Iron level was 152 with a percent saturation of 31, and B12 level was normal at 448 with a folic acid level of 5.4. The patient was discharged to home to the care of her family. They are aware of all the above issues, including her chronic anemia and have been re-advised to discuss with her PMD, her ladle puller, Dr. Jane, possible endoscopy and colonoscopy, for further evaluation of admission of anemia. They have discussed her cardiac findings with Dr. Jane in the past, whom they state and has recommended a conservative medical course for this patient given her multiple comorbidities and advanced age. I reviewed with them her diet, her medication, x-ray findings, echocardiography, and need for fluid restriction and daily weights, and to contact their ladle puller, Dr. Jane should the patient start to gain weight on an accelerated basis which could lead to decompensated congestive heart failure. Family was aware and in agreement with the above. Greater than 35 minutes was spent in the care, coordination of care, review of care, discussion of care, x-rays, labs, medication with the patient and son at the bedside today. All questions were answered. This was reviewed with her nurse as well. Overall prognosis remained stable at present. Cally Quinones MD
== END 2017-03-01 14:03 | disposition home or self-care (01) | DRG 291 ==
LOC: ED 15:37 → ERH 17:52 → 2RSO 18:30
PROVIDERS: ADMIT Internal Medicine; ATTEND Internal Medicine
PROC: 30233N1 Transfusion of Nonautologous Red Blood Cells into Peripheral Vein, Percutaneous Approach (ICD-10-PCS; principal; 2017-02-25)
DX: I13.0 Hypertensive heart and chronic kidney disease with heart failure and stage 1 through stage 4 chronic kidney disease, or unspecified chronic kidney disease (principal); I50.23 Acute on chronic systolic (congestive) heart failure; N17.9 Acute kidney failure, unspecified; I27.20 Pulmonary hypertension, unspecified; E86.0 Dehydration; I08.3 Combined rheumatic disorders of mitral, aortic and tricuspid valves; I50.82 Biventricular heart failure; N18.3 Chronic kidney disease, stage 3 (moderate); D63.1 Anemia in chronic kidney disease; I48.0 Paroxysmal atrial fibrillation; F41.1 Generalized anxiety disorder; I25.10 Atherosclerotic heart disease of native coronary artery without angina pectoris; M19.90 Unspecified osteoarthritis, unspecified site; E78.5 Hyperlipidemia, unspecified; E87.6 Hypokalemia; Z79.82 Long term (current) use of aspirin; Z95.5 Presence of coronary angioplasty implant and graft

== ENCOUNTER 2017-10-27 14:59 | Inpatient (IN) | payer MEDICARE ==
[2017-10-27 15:04] VITALS: BMI 28.3
--- NOTE | 2017-10-27 15:26 | ED PDOC ---
Arrival/HPI - General Chief Complaint: Abdominal Pain Time Seen by Provider: 10/27/17 15:07 Historian: Family - History of Present Illness Narrative History of Present Illness (Text): 10/27/17 15:27 86 year old female, with a past medical history that includes chronic anemia due to chronic kidney disease, hypertension, hyperlipidemia, inferior wall OH, renal insufficiency, aortic stenosis, and CHF, baseline at times confusede. presents to the emergency department with her daughter, for shortness of breath , abdominal pain, and leg swelling, since 2 days. Patient has been having abdominal pain since her last visit a year prior. Patient states that the pain has been worsening, and causing shortness of breath symptoms to increase. Patient also states diarrhea yesterday. Patient's pitting edema in her legs has also been worsening along with other symptoms. Patient also states inability to eat due to abdominal pain. Patient denies any fever, chills, headache, dizziness, chest pain, cough, nausea, vomiting, back pain, neck pain, urinary/bowel changes, or any other complaint. 10/27/17 17:17 10/28/17 07:54 Time/Duration: > month Symptom Onset: Gradual Symptom Course: Unchanged Activities at Onset: Light Context: Home Past Medical History - Provider Review Nursing Documentation Reviewed: Yes - Infectious Disease Hx of Infectious Diseases: None - Cardiac Hx Cardiac Disorders: Yes Hx Congestive Heart Failure: Yes Hx Hypertension: Yes - Pulmonary Hx Respiratory Disorders: No - Neurological Hx Neurological Disorder: No - HEENT Hx HEENT Disorder: Yes (hard of hearing) - Renal Hx Renal Disorder: No - Endocrine/Metabolic Hx Endocrine Disorders: No - Hematological/Oncological Hx Blood Disorders: Yes Hx Anemia: Yes - Integumentary Hx Dermatological Disorder: No - Musculoskeletal/Rheumatological Hx Musculoskeletal Disorders: Yes Hx Arthritis: Yes - Gastrointestinal Hx Gastrointestinal Disorders: Yes Other/Comment: "As per daughter, patient diagonised with stomach issue, unsure of name. Surgical procedure was not recommended due to age." - Genitourinary/Gynecological Hx Genitourinary Disorders: No - Psychiatric Hx Psychophysiologic Disorder: Yes Hx Anxiety: Yes Hx Substance Use: No - Surgical History Hx Coronary Stent: Yes (x6/1st in 2011/last 2014) - Anesthesia Hx Anesthesia: Yes Hx Anesthesia Reactions: No Hx Malignant Hyperthermia: No Family/Social History - Physician Review Nursing Documentation Reviewed: Yes Family/Social History: No Known Family HX Smoking Status: Never Smoked Hx Alcohol Use: No Hx Substance Use: No Allergies/Home Meds Allergies/Adverse Reactions: Allergies No Known Allergies Allergy (Verified 07/02/15 14:44) Home Medications: Home Meds Medication Instructions Recorded Confirmed Aspirin 325 mg PO DAILY 06/17/15 10/27/17 Atorvastatin [Lipitor] 40 mg PO DAILY 06/17/15 10/27/17 Carvedilol [Coreg] 12.5 mg PO BID 06/17/15 10/27/17 Furosemide [Lasix] 40 mg PO BID 06/17/15 10/27/17 Isosorbide Mononitrate ER [Imdur 30 mg PO DAILY 07/02/15 10/27/17 ER] Alprazolam [Xanax] 0.25 mg PO BID 02/25/17 10/27/17 hydrALAZINE [Apresoline] 25 mg PO TID 02/25/17 10/27/17 Review of Systems - Physician Review All systems were reviewed & negative as marked: Yes - Review of Systems Constitutional: Normal. absent: Fevers, Night Sweats Eyes: Normal ENT: Normal Respiratory: SOB. absent: Cough Cardiovascular: Edema. absent: Chest Pain Gastrointestinal: Normal, Abdominal Pain, Appetite Changes. absent: Nausea, Vomiting Genitourinary Female: Normal. absent: Urine Output Changes Musculoskeletal: Normal. absent: Back Pain, Neck Pain Skin: Normal Neurological: Normal. absent: Headache, Dizziness Endocrine: Normal Hemo/Lymphatic: Normal Psychiatric: Normal Physical Exam Vital Signs Reviewed: Yes Vital Signs Temp Pulse Pulse Resp BP Pulse Ox 10/27/17 19:15 68 16 117/64 100 10/27/17 18:49 98.1 F 75 75 18 121/60 10/27/17 18:42 72 15 100 10/27/17 18:30 108/63 10/27/17 17:00 75 15 121/60 98 10/27/17 15:05 99 10/27/17 15:04 98.1 F 73 19 126/62 90 L Temperature: Afebrile Blood Pressure: Normal Pulse: Regular Respiratory Rate: Normal Appearance: Positive for: Well-Appearing, Non-Toxic, Comfortable Pain Distress: None Mental Status: Positive for: Alert and Oriented X 3 - Systems Exam Head: Present: Atraumatic, Normocephalic Pupils: Present: PERRL Extroacular Muscles: Present: EOMI Conjunctiva: Present: Normal Mouth: Present: Moist Mucous Membranes Neck: Present: Normal Range of Motion Respiratory/Chest: Present: Rales (Bilateral rales, worse on right). No: Respiratory Distress Cardiovascular: Present: Regular Rate and Rhythm, Normal S1, S2. No: Murmurs Abdomen: No: Tenderness, Distention, Peritoneal Signs Back: Present: Normal Inspection Upper Extremity: Present: Normal Inspection. No: Cyanosis, Edema Lower Extremity: Present: Normal Inspection. No: Edema Neurological: Present: GCS=15, CN II-XII Intact, Speech Normal Skin: Present: Warm, Dry, Normal Color. No: Rashes Psychiatric: Present: Alert, Oriented x 3, Normal Insight, Normal Concentration Medical Decision Making ED Course and Treatment: 10/27/17 15:41 Impression: 86 year old female presents to the emergency department with worsening abdominal pain, shortness of breath, and edema in the legs. Plan: -- EKG -- Labs -- Chest X-ray -- Urinalysis -- Reassess and disposition Prior Visits: Notes and results from previous visits were reviewed. Progress Notes: 10/27/17 15:49 Normal sinus rhythm @ 73bpm LVH depolarization abnormality 10/28/17 07:[address] franks. ct added. lasix dosed. antibiotics dosed. accpeted to remote tele. daughter requets dni dnr. - Lab Interpretations Lab Results: 10/27/17 15:25 10/27/17 15:25 Lab Results 10/27/17 16:40: Urine Color Yellow, Urine Appearance Clear, Urine pH 6.5, Ur Specific [place] 1.010, Urine Protein Negative, Urine Glucose (UA) Negative, Urine Ketones Negative, Urine Blood Negative, Urine Nitrate Negative, Urine Bilirubin Negative, Urine Urobilinogen 1.0 H, Ur Leukocyte Esterase Moderate H, Urine RBC 1 - 3, Urine WBC 20 - 25, Ur Epithelial Cells 4 - 5, Urine Bacteria Many 10/27/17 15:25: Sodium 144, Potassium 4.0, Chloride 98, Carbon Dioxide 36 H, Anion Gap 14, BUN 49 H, Creatinine 1.3 H, Est GFR ( Amer) 47, Est GFR ( Non-Af Amer) 39, Random Glucose 130 H, Calcium 8.8, Magnesium 2.3 H, Total Bilirubin 0.8, AST 25, ALT 21, Alkaline Phosphatase 86, Lactate Dehydrogenase 577, Total Creatine Kinase 78, Troponin I 0.05, NT-Pro-B Natriuret Pep 68580 H, Total Protein 7.0, Albumin 3.7, Globulin 3.3, Albumin/Globulin Ratio 1.1, Lipase 166 10/27/17 15:25: PT 13.7 H, INR 1.20, APTT 32.4 10/27/17 15:25: WBC 5.6 D, RBC 3.95, Hgb 9.4 L, Hct 31.8 L, MCV 80.5, MCH 23.8 L, MCHC 29.6 L, RDW 18.9 H, Plt Count 200, MPV 9.9, Gran % 69.1 H, Lymph % (Auto ) 12.1 L, Cross % (Auto) 14.9 H, Eos % (Auto) 3.4, Baso % (Auto) 0.5, Gran # 3.90 , Lymph # (Auto) 0.7 L, Cross # (Auto) 0.8 H, Eos # (Auto) 0.2, Baso # (Auto) 0.03 - RAD Interpretation Radiology Orders: 10/27/17 15:24 CHEST PORTABLE [RAD] Stat 10/27/17 16:19 ABD & PELVIS W/O PO OR IV CONT [CT] Stat - Medication Orders Current Medication Orders: Alprazolam (Xanax) 0.25 mg PO DAILY [facility] PRN Reason: Protocol Stop: 11/04/17 10:01 Aspirin (Aspirin) 325 mg PO DAILY [facility] Atorvastatin Calcium (Lipitor) 40 mg PO DIN [facility] Carvedilol (Coreg) 12.5 mg PO BID [facility] Furosemide (Lasix) 40 mg IVP BID [facility] Hydralazine HCl (Apresoline) 25 mg PO TID [facility] Isosorbide Mononitrate (Imdur Er) 30 mg PO DAILY [facility] Discontinued Medications Furosemide (Lasix) 40 mg IVP STAT STA Stop: 10/27/17 16:31 Last Admin: 10/27/17 18:30 Dose: 40 mg MAR Blood Pressure Document 10/27/17 18:30 SF (Rec: 10/27/17 18:31 [place] [facility] [email or web address] Blood Pressure Blood Pressure (100/60-150/90) 108/63 IVP Administration Document 10/27/17 18:30 SF (Rec: 10/27/17 18:31 SF [email or web address] [email or web address] Charges for Administration # of IVP Administrations 1 Ceftriaxone Sodium (Rocephin 2 Gm Ivpb) 2 gm in 100 mls @ 100 mls/hr IVPB STAT STA PRN Reason: Protocol Stop: 10/27/17 17:18 Last Admin: 10/27/17 18:22 Dose: 100 mls/hr eMAR Start Stop Document 10/27/17 18:22 SF (Rec: 10/27/17 18:22 SF [email or web address] [email or web address] Intravenous Solution Start Date 10/27/17 Start Time 18:22 End Date 10/27/17 End time 19:22 Total Infusion Time 60 Azithromycin (Zithromax 500mg In Ns) 500 mg in 250 mls @ 167 mls/hr IVPB STAT STA PRN Reason: Protocol Stop: 10/27/17 17:48 Last Admin: 10/27/17 16:37 Dose: 167 mls/hr eMAR Start Stop Document 10/27/17 16:37 SF (Rec: 10/27/17 16:37 SF [email or web address] [email or web address] Intravenous Solution Start Date 10/27/17 Start Time 16:37 End Date 10/27/17 End time 18:10 Total Infusion Time 93 Metronidazole (Flagyl) 500 mg in 100 mls @ 100 mls/hr IVPB STAT STA PRN Reason: Protocol Stop: 10/27/17 18:19 Pneumococcal Polyvalent Vaccine (Pneumovax 23 Vaccine) 0.5 ml IM .ONCE ONE Stop: 10/27/17 19:08 - Scribe Statement The provider has reviewed the documentation as recorded by the Scribe Denilson Leon All medical record entries made by the Scribe were at my direction and personally dictated by me. I have reviewed the chart and agree that the record accurately reflects my personal performance of the history, physical exam, medical decision making, and the department course for this patient. I have also personally directed, reviewed, and agree with the discharge instructions and disposition. Disposition/Present on Arrival - Present on Arrival Any Indicators Present on Arrival: No History of DVT/PE: No History of Uncontrolled Diabetes: No Urinary Catheter: No History of Decub. Ulcer: No History Surgical Site Infection Following: None - Disposition Have Diagnosis and Disposition been Completed?: Yes Diagnosis: Congestive heart failure (CHF), Pleural effusion, Abdominal pain Disposition: HOSPITALIZED Disposition Time: 06:00 Condition: STABLE
[2017-10-27 16:03] LABS: BASO # 0.03 K/mm3 (0.0-2.0); BASO % 0.5 % (0.0-3.0); EOS # 0.2 (0.0-0.7); EOS % 3.4 % (1.5-5.0); GRAN # 3.9 (1.4-6.5); GRAN % 69.1 % (50.0-68.0); HEMOGLOBIN 9.4 g/dL (12.0-16.0); LYMPH # 0.7 (1.2-3.4); LYMPH % 12.1 % (22.0-35.0); MEAN CELL VOLUME 80.5 fl (80.0-105.0); MEAN CORPUSCULAR HEMOGLOBIN 23.8 pg (25.0-35.0); MEAN CORPUSCULAR HGB CONC 29.6 g/dl (31.0-37.0); MEAN PLATELET VOLUME 9.9 fl (7.0-11.0); MONO # 0.8 (0.1-0.6); MONO % 14.9 % (1.0-6.0); RBC 3.95 10^6/uL (3.5-6.1); RED CELL DISTRIBUTION WIDTH 18.9 % (11.5-14.5); WHITE BLOOD COUNT 5.6 10^3/ul (4.5-11.0)
[2017-10-27 16:10] LABS: ALB/GLOB RATIO 1.1 (1.1-1.8); ALBUMIN 3.7 g/dL (3.0-4.8); CALCIUM 8.8 mg/dL (8.4-10.5)
[2017-10-27 16:11] LABS: INR 1.2; PARTIAL THROMBOPLASTIN TIME 32.4 Seconds (25.1-36.5); PROTHROMBIN TIME 13.7 SECONDS (9.4-12.5)
[2017-10-27] MEDS ORDERED: Azithromycin 500MG/NS 250ml 500 MG/250 ML BAG IVPB STA (16:19)
[2017-10-27] MEDS ORDERED: cefTRIAXone 2 GM IN NS 2 GM/100 ML BAG IVPB STA (16:19)
[2017-10-27 16:28] LABS: TROPONIN I 0.05 ng/mL
--- NOTE | 2017-10-27 17:08 | RAD ---
Date of service: 10/27/2017 HISTORY: SOB COMPARISON: Comparison chest 02/28/2017. FINDINGS: LUNGS: Poor inspiration with low lung volumes with crowded bronchovascular markings bibasilar atelectasis right greater than left. Central pulmonary vasculature is congested with what could represent developing bilateral lower lobe alveolar-type infiltrates. Right-sided effusion is felt to be present. . Note that both medial lung apices are partially obscured by overlying mandible and facial soft tissue artifact PLEURA: As above. No pneumothorax apparent. CARDIOVASCULAR: Heart size is difficult to assess due to silhouetting both cardiac borders however the heart appears enlarged on prior study OSSEOUS STRUCTURES: No significant abnormalities. VISUALIZED UPPER ABDOMEN: Normal. OTHER FINDINGS: None. IMPRESSION: Slightly limited study as above. Poor inspiration with low lung volumes with crowded bronchovascular markings bibasilar atelectasis right greater than left. Central pulmonary vasculature is congested with what could represent developing bilateral lower lobe alveolar-type infiltrates. Right-sided effusion is felt to be present.
--- NOTE | 2017-10-27 17:19 | CT ---
Date of service: 10/27/2017 PROCEDURE: CT Abdomen and Pelvis without intravenous contrast HISTORY: Abdominal pain. COMPARISON: No prior study available comparison TECHNIQUE: Contiguous helical/transaxial sections of the abdomen pelvis performed without oral or intravenous contrast material. Additional 2D sagittal and coronal formats generated. Radiation dose: Total exam DLP = 453.46 mGy-cm. This CT exam was performed using one or more of the following dose reduction techniques: Automated exposure control, adjustment of the mA and/or kV according to patient size, and/or use of iterative reconstruction technique. FINDINGS: LOWER THORAX: There is a small right-sided effusion. Right middle and lower lobe atelectasis and or infiltrate. There may also be some atelectasis and or scarring in the left lingular region. Interlobular septal thickening and hazy ground-glass opacities consistent with pulmonary edema/ CHF. Cardiomegaly. Tiny pericardial effusion. Changes also suggested mild anemia. Clinical correlation recommended. LIVER: The liver exhibits normal size. Perihepatic ascites present. No obvious hepatic masses or collections. GALLBLADDER AND BILE DUCTS: Gallbladder is physiologically distended. No definitive evidence of intraluminal gallbladder calculi. Questionable gallbladder wall edema or thickening with some infiltration in the parent cholecystic the mesentery possibly due to some mild on ascites however possibility of early acute cholecystitis cannot be excluded. Clinical correlation recommended. PANCREAS: Pancreas appears slightly atrophic and fatty replaced. . SPLEEN: Spleen exhibits normal size and attenuation pattern without masses collections or calcifications. ADRENALS: Small 2 cm elliptical shaped hypodense right adrenal mass likely representing adenoma. KIDNEYS AND URETERS: Unremarkable. No hydronephrosis. No solid mass. VASCULATURE: Unremarkable. No aortic aneurysm. BOWEL: Evaluation of the bowel is limited due to the lack of oral and intravenous contrast material as well as motion artifact possibly related to coughing. The stomach is incompletely distended. Visualized loops of small bowel exhibit normal contour and caliber. No evidence of acute mechanical small bowel obstruction. Stool and air seen throughout the large bowel. APPENDIX: Appendix is not seen with complete certainty on this study however no obvious inflammatory changes. PERITONEUM: Small medium amount of perihepatic and pelvic ascites. No evidence of free intraperitoneal air. There is a is small to medium sized fat containing umbilical hernia. LYMPH NODES: Unremarkable. No enlarged lymph nodes. BLADDER: Urinary bladder is incompletely distended which in part accounts for thick-walled appearance however the possibility of a cystitis not excluded. Clinical correlation recommended. REPRODUCTIVE: Uterus appears unremarkable. BONES: Mild moderate multilevel degenerative spondylosis of the lower thoracic and lumbar spine. Slight anterior subluxation of L3 over L4 and to a lesser degree L4 over L5. Vacuum disc phenomena seen at several levels. There is also a mild localized levoscoliosis centered at the L2-L3 level. No acute compression fractures no retropulsed fragments. . OTHER FINDINGS: None. IMPRESSION: Findings consistent with mild pulmonary edema with right lower lobe solid a luna and effusion. Cardiomegaly with small pericardial effusion. Small to medium amount abdominal and pelvic ascites as above. Gallbladder wall edema or thickening could be due to ascites however acute cholecystitis not excluded. Clinical correlation recommended. Mild bladder wall thickening likely due to incomplete distention however correlation with urinalysis to exclude cystitis. Evaluation of the bowel is quite limited due to motion artifact as well as lack of oral and intravenous contrast material.
[2017-10-27] MEDS ORDERED: metroNIDAZOLE IV 500 mg/100 ml 500 MG/100 ML BAG IVPB STA (17:20)
[2017-10-27 17:49] LABS: PH,URINE 6.5 (4.7-8.0); URINE BILIRUBIN NEGATIVE (NEGATIVE); URINE BLOOD NEGATIVE (NEGATIVE); URINE GLUCOSE (UA) NEGATIVE (NEGATIVE); URINE LEUKOCYTE ESTERASE MODERATE Leu/uL (NEGATIVE); URINE PROTEIN NEGATIVE mg/dL (<30 mg/dL)
[2017-10-27 18:01] LABS: URINE APPEARANCE CLEAR (CLEAR); URINE COLOR YELLOW (YELLOW)
[2017-10-27 18:03] LABS: URINE BACTERIA MANY (NEG); URINE WBC 20 - 25 /hpf (0-6)
[2017-10-27] MEDS ORDERED: Pneumococcal 23-Valent Vaccine IM ONE (19:07)
--- NOTE | 2017-10-28 16:23 | CARD ---
APPROVED REPORT Date of service: 10/27/2017 EKG Measurement Heart [id number] <Conclusion> Normal sinus rhythm Left ventricular hypertrophy with repolarization abnormality Possible Lateral infarct, age undetermined Inferior infarct, age undetermined Abnormal ECG
[2017-10-29 07:25] LABS: CALCIUM 8.8 mg/dL (8.4-10.5)
[2017-10-29] MEDS: cefTRIAXone 1 gm 1 GM/100 ML BAG IVPB SCH (20:39)
--- NOTE | 2017-10-30 08:50 | HP ---
Copied To: Cally Quinones MD Attending MD: Cally Quinones MD DATE OF EXAM: 10/28/2017 HISTORY OF PRESENT ILLNESS: This 86-year-old female was examined at her bedside in the presence of her 2 daughters and this case was reviewed in detail with nurse, Wendy Estrada, registered nurse. The patient presented to the [facility] with cough, congestion and shortness of breath and was admitted for exacerbation of chronic obstructive pulmonary disease as well as exacerbation of chronic systolic congestive heart failure. The patient is a debilitated home-bound patient who is cared for on a 24-hour basis by her 3 children. She has a history of chronic hypertension, atherosclerotic heart disease, systolic congestive heart failure, hyperlipidemia and anxiety neurosis as well as chronic renal failure, stage III and anemia of chronic disease. ALLERGIES: THE PATIENT DENIES ANY ALLERGIES TO MEDICATION. OUTPATIENT MEDICATIONS: As reviewed with her daughter at the bedside include hydralazine 25 mg p.o. t.i.d., Imdur 30 mg p.o. daily, Lasix 40 mg p.o. b.i.d., Coreg 12.5 mg p.o. b.i.d., Lipitor 40 mg p.o. at bedtime, Ecotrin 325 mg p.o. daily and Xanax 0.25 mg p.o. b.i.d. SOCIAL HISTORY: The patient is a nondrinker, nonsmoker, non-IV drug misuser. 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 FAMILY HISTORY: Noncontributory. She is a DNR/DNI status. REVIEW OF SYSTEMS: CONSTITUTIONAL: The patient complained of feeling feverish, but denied any chills or sweating. HEAD: Denied headache or seizure. EYES: No change in visual acuity. EARS: No hearing loss. THROAT: No swallowing difficulty. NECK: No stiffness. CARDIAC: Has chronic congestive heart failure manifested by anasarca, shortness of breath and deconditioning. PULMONARY: She admits to shortness of breath with a dry cough, but denied any hemoptysis or productive sputum. GI: Denied hematemesis, melena or diarrhea. : Denied dysuria. SKIN: Denied rash or ulceration. VASCULAR: Denied claudication. PSYCHOLOGIC: Has chronic anxiety. NEUROLOGIC: No knowledge of stroke. ENDOCRINOLOGIC: Has hyperlipidemia, but denies knowledge of insulin-dependent diabetes mellitus. HEMATOLOGIC: Has anemia of chronic disease. PHYSICAL EXAMINATION: GENERAL: At the time of this interview showed the patient lying in bed, wearing nasal O2, appearing comfortable, but highly anxious. VITAL SIGNS: Her temperature was 98.5, respirations 19, pulse 74 and blood pressure 115/64 with a pulse ox of 95% on 2 liters nasal O2. HEENT: Head, normocephalic, atraumatic. Eyes ,no icterus. Conjunctivae pale. Ears: Clear. Throat: Noninjected. NECK: Supple. HEART: Regular S1, S2 with no significant or pathological rubs, murmurs or gallops. LUNGS: Had basilar rales, bilateral rhonchi and expiratory wheezing that cleared with coughing. ABDOMEN: Soft, nontender, no palpable organomegaly. No rebound, no guarding. No tenderness. EXTREMITIES: Showed 2+ pitting edema from ankles to knees. No ulcerations. No rash. VASCULAR: Legs are warm to touch. PSYCHOLOGIC: Anxious. NEURO: Deconditioned. LABORATORY DATA: White count 5600, hemoglobin 9.4, hematocrit 31.8, platelets 200,000. Her PT/INR was 1.20, PTT 32.4. Sodium 144, K 4, chloride 98, bicarb 36, BUN 49, creatinine 1.3. Estimated GFR 39 mL per minute. Random blood sugar 130, calcium 8.8. Magnesium 2.3. Bilirubin 0.8, AST 25, ALT 21, alk phos 86. CPK normal 68. Troponin 0.05 indeterminant, BNP 26,000. Lipase 166. Urinalysis showed many bacterias. No protein, no glucose. EKG was reviewed. It showed normal sinus rhythm with left ventricular hypertrophy changes, nonspecific ST-T wave changes. Chest x-ray was reviewed. It showed carotid bronchovascular markings, bibasilar atelectasis, central pulmonary vascular congestion and a developing bilateral lower lobe alveolar-type infiltrate with a right-sided pleural effusion. No pneumothorax was noted. Abdominal pelvic CT was reviewed, pulmonary edema was noted at the base of her lungs with right lower lobe infiltrate as well as effusion. No significant pericardial effusion was noted, but cardiomegaly was evident She was noted to have medium amount of abdominal and pelvic ascites with gallbladder wall edema felt to be secondary to the ascites. Spinal arthritis was noted as well as no evidence of enlarged lymph nodes. IMPRESSION: This is an 86-year-old female who presented with shortness of breath, decompensated, [id number] systolic congestive heart failure, chronic renal failure, stage III, anemia of chronic disease, chronic hypertension, hyperlipidemia and anxiety neurosis with cough and congestion and concerns of exacerbation of chronic obstructive pulmonary disease as well, prompting the need for admission to the Cardiac Unit at this time. The patient will remain a DNR/DNI. I discussed with her 2 daughters at the bedside. She will continue on hydralazine 25 mg p.o. t.i.d., Ecotrin 325 mg p.o. daily, Coreg 12.5 mg p.o. b.i.d., Imdur 30 mg p.o. daily. Lasix will be changed to 40 mg IV push b.i.d., Lipitor, we will continue 40 mg p.o. at dinner time. She is ordered to receive Rocephin 1 g IV every 24 hours, Zithromax 150 mg p.o. daily, Xanax 0.25 mg p.o. b.i.d. and blood and urine cultures have been requested as well. She is ordered to have a heart-healthy diet with a 1000 mL p.o. fluid restriction daily. Strict inputs and outputs have been requested. She is ordered to be on a high-risk fall protocol and is ordered to have physical and occupational therapy for reconditioning and gait training. The patient will have serial electrolytes and once clinically improved, will be discharged to home to the care of her family who provide 24 hours supervision of this patient. Greater than 75 minutes was spent in the care, review of x-rays, labs, outlining of medication orders and discussion of this patient with her nurse as well as her two daughters at the bedside. All questions were answered. Cally Quinones MD [facility]
--- NOTE | 2017-10-30 09:05 | PN ---
Copied To: Cally Quinones MD Attending MD: Cally Quinones MD DATE: 10/29/2017 SUBJECTIVE: This 85-year-old female remains hospitalized with gpalh-qs-andssjx decompensated systolic congestive heart failure, shortness of breath and exacerbation of chronic obstructive pulmonary disease. I did review this case in detail with her nurse, Lulu Henning, registered nurse. The patient is weak and deconditioned. She is on fall precautions. She is receiving parenteral Lasix, p.o. fluid restriction and a heart-healthy diet while monitoring Is and Os and serial electrolytes. The goal is to obtain a negative fluid balance and to hopefully decrease her pleural effusion, shortness of breath and infiltrative changes noted on admission chest x-ray. Of note, the patient is denying any fever, chills, chest pain but remains short of breath without nasal O2. OBJECTIVE: VITAL SIGNS: At the present time, she is in a normal sinus rhythm on the dextrine mixer. Her temperature was 97.6, respirations 21, pulse 68, blood pressure 123/55. Pulse ox of 96% on 2 liters nasal O2. HEENT: Head: Normocephalic, atraumatic. Eyes: No icterus. Ears clear. Throat: Noninjected. NECK: Supple. HEART: With regular S1, S2. No pathological rubs, murmurs or gallops. LUNGS: With decreased breath sounds at the right greater than left base. Rhonchi present; expiratory wheezing, clears with coughing. ABDOMEN: Soft. No palpable organomegaly. No rebound, no guarding. No tenderness. EXTREMITIES: 2+ edema. SKIN: No rash. VASCULAR: Legs warm to touch. PSYCHOLOGICAL: Chronic anxiety. NEUROLOGICAL: Deconditioned. DATA: Urine culture shows no growth. Blood cultures x2 show no growth at 24 hours. Urinalysis showed many bacteria. Hemoglobin was 10, hematocrit 34.6. Sodium 141, K 4.4, chloride 99, bicarb 29, BUN 55, creatinine 1.3. Estimated GFR 39 mL per minute, glucose 110 and calcium 8.8. IMPRESSION: An 86-year-old female with hnwra-ka-zacquvh systolic congestive heart failure, exacerbation of chronic obstructive pulmonary disease, anasarca, pleural effusion, bibasilar atelectasis and alveolar infiltrates on chest x-ray as well as right pleural effusion and comorbidities with stable atherosclerotic heart disease, chronic hypertension, hyperlipidemia, degenerative arthritis, anxiety neurosis and anemia of chronic disease. The plan as discussed with the patient and Nursing will be to continue hydralazine 25 mg p.o. t.i.d., Ecotrin 325 mg p.o. daily, Coreg 12.5 mg p.o. b.i.d., Imdur 30 mg p.o. daily, Lasix 40 mg IV b.i.d., Lipitor 40 mg p.o. at dinnertime, Rocephin 1 g IV every 24 hours, Zithromax 250 mg p.o. daily, Xanax 0.25 mg p.o. b.i.d. The patient continues on a heart-healthy diet with a 1000 mL p.o. fluid restriction. Strict Is and Os. High-risk fall protocol and occupation and occupational and physical therapy is ordered. Ultimate plan will be for discharge to home with the family providing 24-hour supervision of this patient. She remains a do not resuscitate, do not intubate. Greater than 35 minutes was spent in the care management, review of labs, orders, x-rays and discussion of this patient with Nursing. All questions were answered. Cally Quinones MD MTDD
[2017-10-30] MEDS: cefTRIAXone 1 gm 1 GM/100 ML BAG IVPB SCH (09:48)
--- NOTE | 2017-10-31 00:59 | PN ---
Copied To: Cally Quinones MD Attending MD: Cally Quinones MD DATE: 10/30/2017 SUBJECTIVE: This 86-year-old female was examined at her bedside in the presence of her son, Gualberto Styles. This case was reviewed with the patient's nurse and employment case manager, Milagro Iraheta. The patient remains hospitalized with cough, shortness of breath and decompensated pdirp-sa-ubdcrhs systolic congestive heart failure with manifestations of pleural effusion, rales and productive cough. At present, on physical exam, the patient is in a normal sinus rhythm on the athletic monitor. Denying any active chest pain or palpitation presently. PHYSICAL EXAMINATION: VITAL SIGNS: Her temperature is 98.1, respirations 19, pulse 72 and blood pressure 123/67 with a pulse ox of 97% on 2 L nasal O2. HEENT: Head normocephalic, atraumatic. Eyes: No icterus. Ears: Clear. Throat: Noninjected. NECK: Supple. HEART: S1, S2 with a soft systolic ejection murmur at the left sternal border. LUNGS: With decreased breath sounds at the right base with basilar rales. Occasional rhonchi that cleared with coughing. ABDOMEN: Soft. EXTREMITIES: 2+ pitting edema. SKIN: No ulcers. VASCULAR: Legs warm to touch. PSYCHOLOGICAL: High anxiety. NEURO: Deconditioned. LABORATORY DATA: White count 10, hematocrit 34.6. Sodium 141, K 4.4, chloride 99, bicarb 29, BUN 55, creatinine 1.3. Estimated GFR 39 mL per minute, random blood sugar 110 with all liver function testing normal including bilirubin 0.8, AST 25, ALT 21 and alk phos 86. Her urinalysis showed many bacteria. Her urine culture was unremarkable with blood culture showing no growth. IMPRESSION: An 86-year-old female, DNR/DNI status with rytms-gp-xaqyqdt systolic congestive heart failure, exacerbation of chronic obstructive pulmonary disease, anemia of chronic disease, chronic hypertension, chronic renal failure stage 3 and anxiety neurosis. As discussed with the patient and son, Gualberto at bedside as well as her nurse and case management, she will continue on hydralazine 25 mg p.o. t.i.d., Ecotrin 325 mg p.o. daily, Coreg 12.5 mg b.i.d., Imdur 30 mg p.o. daily, Lasix 40 mg will be increased to t.i.d. while looking for negative fluid balance and decrease in anasarca. She will continue on Lipitor 40 mg at bedtime, Rocephin 1 g IV every 24, Xanax 0.25 mg p.o. b.i.d. and Zithromax 250 mg p.o. daily. We will monitor her urine output, daily weights, serial labs and chest x-rays. Once the patient is clinically stable, she will be discharged to home to the care of her family who provide 24-hour supervision of this patient. Greater than 35 minutes was spent in the care, management, review of labs, orders, x-rays, adjustment of medication and discussion of this patient with nursing, Case Management and son at bedside. All questions were answered. Cally Quinones MD MTDD
[2017-10-31] MEDS: cefTRIAXone 1 gm 1 GM/100 ML BAG IVPB SCH (11:05)
[2017-10-31] MEDS: metOLazone 2.5 MG TAB PO SCH (14:13)
--- NOTE | 2017-10-31 20:41 | CP.PCM.PN ---
Subjective - Date & Time of Evaluation Date of Evaluation: 10/31/17 Time of Evaluation: 20:00 - Subjective Subjective: Patient is a 86 F with a past medical history of chronic hypertension, atherosclerotic heart disease, systolic congestive failure, hyperlipidemia, and anxiety neurosis who presented with cough, congestion, and shortness of breath found to be in chronic obstructive pulmonary disease exacerbation as well as systolic congestive heart failure exacerbation. As per patient's daughter patient was complaining of RUQ pain on and off for a week, however patient's son states this began this evening. Patient apparently was is not as forthcoming with her abdominal symptoms during her admission because she was "ashamed." However, due to experiencing pain a sharp pain rating a 8/10 after defecating patient decided to endorse the abdominal pain to her son. As per patient's daughter, RUQ pain is exacerbated with eating certain foods; not necessarily fatty foods. Patient denies shortness of breath, chest pain, fevers , chills, diarrhea, headache, or cough. Will order abdominal US to rule out gallstones/sludge as etiology. Pending abdominal US read; consider HIDA. Previous imaging reveals ascites which is most likely secondary to patient's Systolic CHF exacerbation which may also cause hepatic congestion which may manifest as abdominal pain. Will control pain at this time. Will determine antibiotics pending imaging read (patient currently does not have leukocytosis however is elderly). Objective - Vital Signs/Intake and Output Vital Signs (last 24 hours): Temp Pulse Resp BP Pulse Ox 98.2 F 71 18 115/71 93 L 10/31/17 16:39 10/31/17 18:24 10/31/17 16:39 10/31/17 18:26 10/31/17 16:39 Intake and Output: 10/31/17 11/01/17 18:59 06:59 Intake Total 960 Output Total 750 Balance 210 - Medications Medications: Current Medications Acetaminophen (Tylenol 325mg Tab) 650 mg PO Q6H PRN PRN Reason: Pain, severe (8-10) Alprazolam (Xanax) 0.25 mg PO BID [facility] PRN Reason: Protocol Stop: 11/05/17 18:01 Last Admin: 10/31/17 11:10 Dose: 0.25 mg Aspirin (Aspirin) 325 mg PO DAILY [facility] Last Admin: 10/31/17 11:10 Dose: 325 mg Atorvastatin Calcium (Lipitor) 40 mg PO DIN [facility] Last Admin: 10/31/17 18:29 Dose: 40 mg Azithromycin (Zithromax) 250 mg PO DAILY [facility] PRN Reason: Protocol Last Admin: 10/31/17 10:15 Dose: 250 mg Carvedilol (Coreg) 12.5 mg PO BID [facility] Last Admin: 10/31/17 18:24 Dose: 12.5 mg Furosemide (Lasix) 40 mg IVP TID [facility] Last Admin: 10/31/17 18:26 Dose: 40 mg Hydralazine HCl (Apresoline) 25 mg PO TID [facility] Last Admin: 10/31/17 18:16 Dose: Not Given Ceftriaxone Sodium (Rocephin 1 Gram Ivpb) 1 gm in 100 mls @ 100 mls/hr IVPB DAILY [facility] PRN Reason: Protocol Stop: 11/02/17 10:59 Last Admin: 10/31/17 11:05 Dose: 100 mls/hr Isosorbide Mononitrate (Imdur Er) 30 mg PO DAILY [facility] Last Admin: 10/31/17 11:09 Dose: 30 mg Metolazone (Zaroxolyn) 2.5 mg PO DAILY [facility] Last Admin: 10/31/17 14:13 Dose: 2.5 mg - Labs Labs: 10/29/17 06:30 10/31/17 06:30 PT 13.7 SECONDS (9.4-12.5) H 10/27/17 15:25 INR 1.20 10/27/17 15:25 APTT 32.4 Seconds (25.1-36.5) 10/27/17 15:25
[2017-11-01 06:37] LABS: CALCIUM 8.9 mg/dL (8.4-10.5)
--- NOTE | 2017-11-01 09:14 | US ---
Date of service: 10/31/2017 HISTORY: RUQ pain COMPARISON: None. TECHNIQUE: Sonographic evaluation of the abdomen. FINDINGS: LIVER: Measures 14.8 cm. Diffusely increased echogenicity of the liver parenchyma. Consistent with fatty infiltration. Smooth contour. No mass. No biliary ductal dilatation. GALLBLADDER: Unremarkable. No gallstones. COMMON BILE DUCT: Measures 3 mm. No stones. No dilatation. PANCREAS: Unremarkable as visualized. No mass. No ductal dilatation. RIGHT KIDNEY: Measures 8.6cm. Normal echogenicity. No calculus, mass, or hydronephrosis. LEFT KIDNEY: Measures 8.6cm. Normal echogenicity. No calculus, mass, or hydronephrosis. SPLEEN: Normal in size and contour. No mass. AORTA: No aneurysmal dilatation. IVC: Unremarkable. OTHER FINDINGS: None. IMPRESSION: Fatty liver. Otherwise unremarkable. No evidence of cholelithiasis or cholecystitis.
[2017-11-01] MEDS: cefTRIAXone 1 gm 1 GM/100 ML BAG IVPB SCH (09:44)
[2017-11-01] MEDS: metOLazone 2.5 MG TAB PO SCH (09:45)
--- NOTE | 2017-11-01 09:46 | PN ---
Copied To: Cally Quinones MD Attending MD: Cally Quinones MD DATE OF EXAM: 10/31/2017 SUBJECTIVE: This 86-year-old female was examined on the cardiac sierra in the presence of her daughter, Hattie and nurse, Shelley Ignacio, registered nurse. The patient remains hospitalized with multiple medical problems including jaeed-hs-kxfycoy systolic congestive heart failure with pleural effusion, shortness of breath and exacerbation of chronic obstructive pulmonary disease. The patient remains on p.o. fluid restriction, a heart-healthy diet and is having her diuretics adjusted to achieve a negative fluid balance and to mobilize third space fluids including 2+ pedal edema. The patient was out of bed to chair. She remains highly anxious. She has intermittent confusion and remains a DNR/DNI. As discussed with her daughter, Hattie, she will continue on intermittent Xanax p.r.n. anxiety and agitation and remains on high fall risk protocol given her multiple comorbidities. On physical exam today, she denied any fever, chills, chest pain or shortness of breath and was noted to be in a normal sinus rhythm on the alarm security or surveillance monitor. PHYSICAL EXAMINATION: VITAL SIGNS: At the time of my interview, her temperature was 97.5, respirations 20, pulse 68 and blood pressure 122/61 with a pulse ox of 93% on room air. HEENT: Head: Normocephalic, atraumatic. Eyes: No icterus. Ears: Clear. Throat: Noninjected. NECK: Supple. HEART: Regular S1, S2 with a soft systolic ejection murmur at the left sternal border. LUNGS: Had occasional rales at the bases with decreased breath sounds at her right base, third of the way up posteriorly. ABDOMEN: Soft. EXTREMITIES: 2+ pedal edema. SKIN: No rash or ulceration. VASCULAR: Legs warm to touch. PSYCHOLOGICAL: Anxious. NEURO: Deconditioned. LABORATORY DATA: Hemoglobin 10, hematocrit 34.6. PT/INR 1.2, PTT 32.4. Sodium 140, K 4.5, chloride 96, bicarb 35, BUN 66, creatinine 1.4. Estimated GFR 36 mL/minute with a blood sugar of 115. IMPRESSION: An 86-year-old female with chronic renal failure stage 3. Admitted with zpbfj-qt-wkefgwn decompensated systolic congestive heart failure, right pleural effusion, exacerbation of chronic obstructive pulmonary disease with persistent shortness of breath requiring nasal O2, pulmonary toiletry and the patient will continue to be treated with hydralazine 25 mg p.o. t.i.d., Ecotrin 325 mg p.o. daily, Coreg 12.5 mg p.o. b.i.d., Imdur 30 mg p.o. daily, Lasix 40 mg will be increased to IV push t.i.d. and the addition of Zaroxolyn 2.5 mg p.o. daily will begin today. Her 1000 mL p.o. fluid restriction continues. She is on strict inputs and outputs. Lipitor 40 mg p.o. at dinnertime, Rocephin 1 g IV every 24, Zithromax 250 mg p.o. daily, Xanax 0.25 mg b.i.d. and Tylenol 650 p.o. every 6 hours p.r.n. pain or temperature greater than 101. The patient is encouraged to be out of bed to chair. She continues on high fall risk protocol and physical and occupational therapy for reconditioning and gait training. The family has declined any consideration of subacute rehab. She continues to be a DNR/DNI and will be returned to her home where the patient's family provides 24-hour supervision once the patient is clinically stable. Greater than 35 minutes was spent in the care; management; adjustment of orders; medications; discussion of her case with her daughterHattie, nurse, Shelley Ignacio and Physical Therapy. All questions were answered. Cally Quinones MD [facility]TD[facility]
[2017-11-02] MEDS: cefTRIAXone 1 gm 1 GM/100 ML BAG IVPB SCH (09:13)
[2017-11-02] MEDS: metOLazone 2.5 MG TAB PO SCH (09:15)
--- NOTE | 2017-11-02 12:07 | PN ---
Copied To: Cally Quinones MD Attending MD: Cally Quinones MD DATE: 11/01/2017 SUBJECTIVE: This 86-year-old female remains hospitalized and I examined her at the bedside in the presence of her son, Woo and nurse, Conrad Guerra. The patient remains weak and deconditioned. Her course is complicated by anxiety and comorbidities of chronic hypertension and gfckz-vn-hchgsht systolic congestive heart failure. The patient was admitted with shortness of breath, exacerbation of chronic obstructive pulmonary disease, productive cough and pleural effusion notably at her right lung base. The patient has been placed on p.o. fluid restriction and parenteral Lasix and I have added Zaroxolyn in an attempt to achieve a negative fluid balance. The patient also manifests anasarca with slow to improve bilateral pedal edema and yesterday afternoon, complained of some severe abdominal pain which prompted the ordering of an abdominal ultrasound and a laxative with minimal results. At present, the patient is alert, lying in her bed, denying any fever, chills, chest pain or hemoptysis. PHYSICAL EXAMINATION: VITAL SIGNS: Noted to be in a normal sinus rhythm with a temperature of 97.6, respirations 21, pulse 71 and blood pressure 124/62. Pulse ox 98% on 2 liters nasal O2. Her Is and Os from 10/31/2017 were noted to be 960 mL in with a urine output of 750 mL. HEENT: Head: Normocephalic, atraumatic. Eyes: No icterus. Ears: Clear. Throat: Noninjected. NECK: Supple. HEART: Regular S1, S2. Soft systolic ejection murmur, left sternal border. ABDOMEN: Soft, nontender. No rebound, no guarding, no tenderness. No palpable hepatomegaly. No CVA tenderness. EXTREMITIES: A 1 to 2+ pitting edema bilaterally from ankles to knees. VASCULAR: Legs warm to touch. PSYCHOLOGICAL: Alert, but confused. NEUROLOGICAL: Deconditioned. DATA: Hemoglobin 10, hematocrit 34.6. Sodium 140, K 4, chloride 93, bicarb 36, BUN 72, creatinine 1.4. Estimated GFR 36 mL per minute. Urine and blood cultures, no growth to date. IMPRESSION: This is an 86-year-old female with jwlpj-mh-ptfjwnu systolic congestive heart failure with right heart failure; anasarca; bilateral pedal edema; abdominal discomfort, now resolved, rule out dyspepsia secondary to colonic gas, rule out cholecystitis, rule out cholelithiasis; chronic hypertension; stable atherosclerotic heart disease; history of hyperlipidemia; anxiety neurosis; exacerbation of chronic obstructive pulmonary disease. As discussed with her son, the patient and nurse at bedside, she will be given lactulose 30 mL p.o. stat with an order for a tap water enema to clear if no results with bowel movement in six hours. She will continue on hydralazine 25 mg p.o. t.i.d., Ecotrin 325 mg p.o. daily, Coreg 12.5 mg b.i.d. and Imdur 30 mg p.o. daily. Lasix has been increased to 40 mg IV every 8 hours, Lipitor 40 mg p.o. at dinner, Rocephin 1 g IV every 24 hours, Zithromax 250 mg p.o. daily. She will receive Tylenol 650 p.o. every 6 hours p.r.n. pain or temperature greater than 101, Xanax 0.25 mg p.o. b.i.d. and Zaroxolyn 2.5 mg p.o. daily has been added to hopefully achieve a negative fluid balance. She remains on strict Is and Os. She is encouraged to be out of bed to chair. She remains on fall precautions. She is a DNR/DNI and is receiving physical therapy for reconditioning and gait training. As discussed with family and Social Service, she will be readied for discharge to home to the care of her family who provides 24 hours supervision of this patient in the outpatient setting. Although her overall prognosis remains poor, she is steady at present and greater than 35 minutes were spent in the care management, review of labs, orders, x-rays, outlining of interventions for this patient today and discussing her case with son and nursing. All questions were answered. Cally Quinones MD [facility]
[2017-11-03] MEDS: metOLazone 2.5 MG TAB PO SCH (09:53)
--- NOTE | 2017-11-03 15:53 | RAD ---
Date of service: 11/03/2017 HISTORY: r/o pleural effusion compare to previous COMPARISON: Comparison chest 10/27/2017 TECHNIQUE: Chest PA and lateral FINDINGS: LUNGS: Persistent mild pulmonary vascular congestive changes with bilateral lower lobe alveolar-type infiltrates and bilateral effusions, slightly improved from prior exam. PLEURA: No significant pleural effusion identified. No pneumothorax apparent. CARDIOVASCULAR: Normal. OSSEOUS STRUCTURES: No significant abnormalities. VISUALIZED UPPER ABDOMEN: Normal. OTHER FINDINGS: None. IMPRESSION: Persistent mild pulmonary vascular congestive changes with bilateral lower lobe alveolar-type infiltrates and bilateral effusions, slightly improved from prior exam.
--- NOTE | 2017-11-03 16:09 | PN ---
Copied To: Cally Quinones MD Attending MD: Cally Quinones MD DATE: 11/02/2017 SUBJECTIVE: This 86-year-old female was examined at her bedside in the presence of her son, Woo and nurse, Melina Serrano, registered nurse. The patient remains chronically confused, deconditioned and at bed rest. She is ordered to be out of bed to chair and ambulated as able, but because of her comorbidities and confusion, does this minimally, both in the hospital and at home, according to family. She denies any fever, chills, chest pain and her abdominal pain is resolved. PHYSICAL EXAMINATION: VITAL SIGNS: She was in a normal sinus rhythm on dupligraph operator. Temperature 97.8, respirations 21, pulse 70 and blood pressure 123/64 and pulse ox 97% on room air. HEENT: Head: Normocephalic, atraumatic. Eyes: No icterus. Ears: Clear. Throat: Noninjected. NECK: Supple. HEART: Regular S1, S2. LUNGS: Clear. ABDOMEN: Soft. No rebound, no guarding. No tenderness. No palpable organomegaly. No CVA tenderness. EXTREMITIES: Decreased edema to trace in her feet, 1+ in her pretibial area. VASCULAR: Legs warm to touch. PSYCHOLOGIC: Alert, but confused. NEURO: Deconditioned, but intact. LABORATORY DATA: Hemoglobin 10, hematocrit 34.6. Sodium 140, K 4, chloride 93, bicarb 36, BUN 72, creatinine 1.4. Estimated GFR 36 mL/minute, glucose 110. Microbiology studies including blood and urine showed no growth. IMPRESSION: An 86-year-old female admitted with shortness of breath, exacerbation of chronic obstructive pulmonary disease, right heart failure, anasarca and right pleural effusion with chronic anxiety, hyperlipidemia, chronic renal failure stage III and anemia of chronic disease, degenerative arthritis. PLAN: Plan is to continue hydralazine 25 mg p.o. t.i.d., Ecotrin 325 mg p.o. daily, Coreg 12.5 mg b.i.d., Imdur 30 mg p.o. daily, Lasix 40 mg IV t.i.d., Lipitor 40 mg p.o. daily, Tylenol 650 p.o. every 6 hours p.r.n. fever, Xanax 0.25 mg p.o. b.i.d., Zaroxolyn 2.5 mg p.o. daily, while continuing a heart-healthy diet with 1000 mL p.o. fluid restriction and high fall-risk protocol. She remains on strict I's and O's. She is receiving physical therapy for reconditioning and gait training. She does have an order for tap water enema p.r.n. severe obstipation and I did encourage her son at the bedside to increase her fiber in the diet and to assist her with her nutritional supplement. Greater than 35 minutes were spent in the care management, review of labs, orders and x-rays. All questions were answered. I will order a chest x-ray in a.m. to further assess her congestive heart failure and pleural effusion status and the patient will be readied for discharge to home with family providing 24 hours supervision of this patient once she is medically stabilized. Cally Quinones MD MTDD
[2017-11-04 08:47] LABS: CALCIUM 9.2 mg/dL (8.4-10.5)
[2017-11-04] MEDS: metOLazone 2.5 MG TAB PO SCH (09:11)
--- NOTE | 2017-11-04 14:23 | PN ---
Copied To: Cally Quinones MD Attending MD: Cally Quinones MD DATE: 11/03/2017 SUBJECTIVE: This 86-year-old female remains hospitalized with decompensated ysfki-xc-suvcpzc systolic congestive heart failure with right heart failure, findings of anasarca for which she is receiving parenteral Lasix, p.o. fluid restriction, and oral Zaroxolyn. The case was reviewed in detail with her nurse, Cheyanne Guerra, registered nurse. The patient denies fever, chills, chest pain, or shortness of breath. She remains in a normal sinus rhythm on the equipment monitor phototypesetting. PHYSICAL EXAMINATION: VITAL SIGNS: Temperature 97.1, respirations 20, pulse 71, blood pressure 116/61 with a pulse ox of 96% on room air with a negative fluid balance of 540 mL in the past 24 hours. Her physical exam remains unchanged. LABORATORY DATA: Hemoglobin 10, hematocrit 34.6. Sodium 140, K 4, chloride 93, bicarb 36. BUN 72, creatinine 1.4. Random blood sugar 110. IMPRESSION: An 86-year-old female with egpqu-ll-qbsiuqx systolic congestive heart failure, right heart failure, anasarca, chronic hypertension, organic brain syndrome, chronic anxiety, chronic hypertension, stable atherosclerotic heart disease, hyperlipidemia, history of degenerative arthritis, and anemia of chronic disease with history of hyperkalemia in the setting of her stage III chronic renal failure and TIANA inhibitor use in the past. PLAN: At present is to continue heart-healthy 1000 mL p.o. fluid restricted diet and repeat chest x-ray today. She continues on hydralazine, aspirin, Coreg, Imdur, K-Dur, IV Lasix, Lipitor, Tylenol, Xanax, and Zaroxolyn. If the patient's x-ray is stable and improving and she is stabilized in a.m., she will be readied for discharge to home to the care of her family who provides 24 hours supervision of this patient and she remains DNR/DNI. All of the above was discussed in detail with her nurse. All questions were answered. Cally Quinones MD [facility] # [id number] MTDBlanca
[2017-11-04] MEDS: Potassium Chloride 20 mEq ER Tab PO SCH (17:14)
--- NOTE | 2017-11-05 08:08 | DS ---
Copied To: Cally Quinones MD Attending MD: Cally Quinones MD DATE OF EVALUATION: 11/05/2017. FINAL DIAGNOSES: Mtati-[id number] systolic congestive heart failure, improved; stable atherosclerotic heart disease; chronic hypertension; hyperlipidemia; anxiety neurosis; degenerative arthritis; anemia of chronic disease. DISPOSITION: Home with family providing 24-hour supervision. The patient remains DNR/DNI. DISCHARGE DIET: Heart-healthy 1000 mL p.o. fluid restricted diet. MEDICATIONS: Hydralazine 25 mg p.o. t.i.d., Ecotrin 325 mg p.o. daily, Coreg 12.5 mg p.o. b.i.d., Imdur 30 mg p.o. daily, K-Dur 20 mEq p.o. daily, Lasix 40 mg p.o. t.i.d., Lipitor 40 mg p.o. at dinner time, Xanax 0.25 mg b.i.d. and Zaroxolyn 2.5 mg p.o. daily. 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 SUMMARY: This 86-year-old female was admitted with [id number] decompensated systolic congestive heart failure with shortness of breath, cough and 2+ pitting edema of her legs from her feet to her knees. The patient was treated with parenteral antibiotics, pulmonary toiletry, parenteral diuretics, p.o. fluid restriction and at the time of this dictation, denies any fever, chills, chest pain or shortness of breath. She remains a DNR/DNI. Her temperature was 97.4, respirations 20, pulse 70, blood pressure 110/60, and pulse ox 94% room air. DISCHARGE LABS: Show sodium 144, K 3.4 for which the patient was given 20 mEq of p.o. K-Dur, chloride 91, bicarb 40, BUN 87, creatinine 1.2, random blood sugar 100. Hemoglobin 9, hematocrit 31.3. All blood, urine cultures were negative growth and chest x-ray dated 11/03/2017 was reviewed and showed improvement in congestive failure changes with persistent mild pulmonary vascular congestive changes and bilateral pleural effusions, slightly improved from previous exam. PLAN: The patient is discharged to home to the care of her family, I had all medications reviewed with them as well. director of ancillary services has arranged for home O2 therapy.The family will provide 24-hour supportive care. Greater than 35 minutes was spent in the care management, review of labs, orders, x-rays, outlining of prescriptions and discussion of this patient's status with her family at bedside. All questions were answered. Overall prognosis remains poor. Family desires for conservative and compassionate care only. Cally Quinones MD MTDD
[2017-11-05 08:40] VITALS: RESP 24; TEMP 96.5; O2SAT 95
[2017-11-05] MEDS: Potassium Chloride 20 mEq ER Tab PO SCH (09:07)
[2017-11-05] MEDS: metOLazone 2.5 MG TAB PO SCH (09:09)
[2017-11-05 13:45] VITALS: BP 100/60; PULSE 68
--- NOTE | 2017-11-05 20:30 | PN ---
Copied To: Cally Quinones MD Attending MD: Cally Quinones MD DATE: 11/04/2017 SUBJECTIVE: This 86-year-old female is in need of home O2. She desaturated to an O2 in the 80s without nasal O2. Because it is Sunday and there is no one to get authorization, the patient's discharge will be withheld until this issue can be addressed in the a.m. by Social Service. The patient was examined at the bedside in the presence of her family. PHYSICAL EXAMINATION: VITAL SIGNS: Showed temperature 97.4, respirations 20, pulse 72, and blood pressure 110/60 with a pulse ox of 94% on 2 liters nasal O2. Physical exam is unchanged. LABORATORY DATA: Hemoglobin 9, hematocrit 31.3. Sodium 144, K 3.4 for which the patient was supplemented with 20 mEq of p.o. potassium, chloride 91, bicarb 40, BUN 87, creatinine 1.2, and random blood sugar of 100. IMPRESSION: This is an 86-year-old female with [id number] systolic congestive heart failure, right heart failure, history of mitral regurgitation, aortic stenosis, cardiomyopathy, chronic hypertension, atherosclerotic heart disease, hyperlipidemia, anxiety neurosis, chronic renal failure stage 3, anemia of chronic disease, hypokalemia, degenerative arthritis. As discussed with the patient, nursing, family at bedside, we will attempt for discharge to home in a.m. once O2 for the home is established. She will remain a do not resuscitate/do not intubate and all medications were reviewed with family in detail with nursing present. All questions were answered. Cally Quinones MD
== END 2017-11-05 18:28 | disposition home or self-care (01) | DRG 291 ==
LOC: ED 14:59 → ERH 17:20 → 3RSO 19:45
PROVIDERS: ADMIT Internal Medicine; ATTEND Internal Medicine
DX: I13.0 Hypertensive heart and chronic kidney disease with heart failure and stage 1 through stage 4 chronic kidney disease, or unspecified chronic kidney disease (principal); I50.23 Acute on chronic systolic (congestive) heart failure; J44.1 Chronic obstructive pulmonary disease with (acute) exacerbation; J98.11 Atelectasis; I50.82 Biventricular heart failure; N18.3 Chronic kidney disease, stage 3 (moderate); I42.9 Cardiomyopathy, unspecified; I08.0 Rheumatic disorders of both mitral and aortic valves; E87.6 Hypokalemia; F41.1 Generalized anxiety disorder; I25.10 Atherosclerotic heart disease of native coronary artery without angina pectoris; E78.5 Hyperlipidemia, unspecified; D63.1 Anemia in chronic kidney disease; Z66 Do not resuscitate; H91.90 Unspecified hearing loss, unspecified ear; F09 Unspecified mental disorder due to known physiological condition; M19.90 Unspecified osteoarthritis, unspecified site; Z79.82 Long term (current) use of aspirin; Z95.5 Presence of coronary angioplasty implant and graft; I25.2 Old myocardial infarction